=== PATIENT | male | born 1950 | race Caucasian/White ===

== ENCOUNTER 2018-04-21 13:47 | Inpatient (IN) ==
[2018-04-21] MEDS ORDERED: Ipratropium/Albuterol Neb 3 ML IH ONE (13:54)
[2018-04-21] MEDS ORDERED: methylPREDNISolone 125 MG/2 ML VIAL IVP ONE (14:02)
[2018-04-21] MEDS ORDERED: 0.9 % Sodium Chloride 500 ML IVC ONE ×3 (14:02→16:05)
[2018-04-21] MEDS ORDERED: 0.9 % Sodium Chloride 500 ML ONE (14:04)
--- NOTE | 2018-04-21 14:06 | Emergency Department Note ---
Disposition Clinical Impression: Acute exacerbation of chronic obstructive airways disease, Metastasis to brain Pneumonia Qualifiers: Pneumonia type: due to unspecified organism Laterality: right Lung location: unspecified part of lung Qualified Code(s): J18.9 - Pneumonia, unspecified organism Lung cancer Qualifiers: Laterality: right Lung location: unspecified part of lung Qualified Code(s): C34.91 - Malignant neoplasm of unspecified part of right bronchus or lung Disposition: Admitted As Inpatient Condition: Fair Referrals: NONE,PCP [Primary Care Provider] - Forms: ED Satisfaction Letter Time of Disposition: 15:57 General Adult HPI - General Chief complaint: ED Shortness of Breath/Dyspnea Stated complaint: SOB Time Seen by Provider: 04/21/18 13:53 Source: EMS Limitations: no limitations Nursing Notes Reviewed: Yes Vital Signs Reviewed: Yes - History of Present Illness HPI Narrative: Presents with shortness of breath which is, but worse the last several days and worse with exertion and he does not use home oxygen. Does not have any inhalers at home to use was not tried medication for this. Denies any associated chest pain. Does have a associated dry cough but no hemoptysis. Does have rhinorrhea. No sneezing. His said he felt warm but they did not check his temperature. No blurred vision. No blood in the urine or stool. Does have bruising of the skin but no rash. No numbness but does feel like both of his legs are weak. Social history: Smoker, no alcohol or drugs. He does have a history of lung cancer with metastases to the brain Pain Scale: 0 - Related Data Home Medications Medication Instructions Recorded Confirmed Albuterol Sulfate [Proair Hfa] 1 puff IH Q4H PRN 07/01/17 04/21/18 Levothyroxine [Synthroid] 75 mcg PO DAILY 07/01/17 04/21/18 Dexamethasone [Decadron] 4 mg PO TIDAC 03/11/18 03/26/18 Previous Rx's Medication Instructions Recorded Magic Mouthwash [Magic Mouthwash 5 - 10 ml PO QID PRN #500 ml 07/15/17 BLM] Polyethylene Glycol 3350 [MiraLAX] 17 gm PO BID PRN #240 powd.pack 08/06/17 Sennosides [Senokot] 2 tab PO BID #120 tablet 08/06/17 Lidocaine/Prilocaine [Emla] 1 appl TP DAILY #30 gm 12/03/17 FentaNYL PATCH [Duragesic] 50 mcg TD Q72H 30 Days #10 03/26/18 patch.td72 Oxycodone HCl 5 - 10 mg PO Q6H PRN 15 Days #90 03/26/18 tablet Promethazine [Phenergan] 25 mg PO Q6HR PRN #60 tablet 03/26/18 Allergies Allergy/AdvReac Type Severity Reaction Status Date / Time ibuprofen Allergy Hives Verified 03/11/18 10:51 naproxen [From Aleve] Allergy Hives Verified 03/11/18 10:51 All systems ED: reviewed and negative except as stated. Review of Systems: As Per HPI Past Medical History - Past Medical History Medical history: Reports: cancer, COPD Surgical history: Reports: non-contributory Psychiatric history: Reports: no psych history - Social History Smoking Status: Current every day smoker Smokeless Tobacco Status: No Alcohol use: Reports: none Drug use: Reports: none Physical Exam CONSTITUTIONAL: Alert and oriented X3, thin , moderate respiratory distress, he does know the name of the hospital and the year and said the month is "" HEAD: Normocephalic; atraumatic. EYES: PERRL, no scleral icterus. NOSE: The nose is normal in appearance without rhinorrhea RESP: Normal chest excursion with respiration; breath sounds with bilateral wheezing and rhonchi which is symmetric CARD: Regular rhythm, without murmurs, rub or gallop ABD: Non-distended; non-tender, soft,without rigidity, rebound or guarding SKIN: Normal for age and race; warm and dry; no apparent lesions EXTREMITIES: Pulses are 2 plus and equal times 4 extremities, no peripheral edema or calf muscle pain. - General Limitations: no limitations Course Vital Signs Temperature 98.1 F 04/21/18 13:50 Pulse Rate 120 04/21/18 13:50 Respiratory Rate 25 04/21/18 13:50 Blood Pressure 78/44 04/21/18 13:50 O2 Sat by Pulse Oximetry 91 04/21/18 13:50 Temperature 98.1 F 04/21/18 13:50 Pulse Rate 114 04/21/18 14:43 Respiratory Rate 27 04/21/18 14:43 Blood Pressure 97/62 04/21/18 14:43 O2 Sat by Pulse Oximetry 93 12/24/18 14:43 Oxygen Delivery Oxygen Delivery Nasal Cannula Medical Decision Making - MDM Narrative Medical decision making narrative: Patient does have moderate respiratory distress, hypoxemia with an oxygen saturation in the 80s at home, I did speak with the paramedics and I did see the patient immediately upon arrival. DuoNeb, IV steroid medication, patient will be admitted. I was just informed by the nurse that the current systolic blood pressure 78 and I did write for blood cultures, lactate level, IV fluid bolus and the patient will be reassessed and is sometimes difficult to understand but is able to give a good history 1407 I did review the CBC with minimal elevation in the white blood cell count. I did perform bedside ultrasound and I did visualize the aorta from the subxiphoid area down to the bifurcation in 2 different planes with maximum diameter 2.06 cm as well as did perform a cardiac ultrasound with only very minimal pericardial effusion but no evidence of tamponade not and the patient's blood pressure has improved with 500 mL of normal saline and he will be given another 500 mL and his pressure has increased from 78 systolic to 97 systolic. The patient will be admitted to the hospital. Lactate, blood cultures, IV Zosyn and vancomycin. I did speak with the patient's son who is now in the room and the patient was hospitalized in [place] in January 1507 The most recent blood pressure was checked 60 seconds ago and it is 93 systolic. I did write for a third 500 mL bolus and the patient is currently on the second 500 mL bolus. I did speak with the hospitalist who accepts the patient for admission. He is bright and alert and breathing comfortably. Sitting up on plan the cart. 1607 - Medical Records Medical records reviewed: Yes I reviewed the patient's medical records. - Lab Data Lab results reviewed: Yes I reviewed the patient's lab results. Result diagrams: 04/21/18 14:15 04/21/18 14:15 Lab Results 04/21/18 04/21/18 04/21/18 Range/Units 14:15 14:15 14:15 WBC 11.2 H (4.3-11.1) K/mcL RBC 4.38 (4.19-5.50) M/mcL Hgb 13.0 (12.9-16.9) g/dL Hct 39.3 (37.5-50.1) % MCV 89.7 (83.0-100.0) fL MCH 29.7 (28.0-33.3) pg MCHC 33.1 (31.6-35.5) g/dL RDW 14.3 (11.5-14.5) % Plt Count 181 (140-400) K/mcL MPV 9.4 (9.4-12.4) fL Seg Neutrophils % 46.0 % Band Neutrophils % 38.0 H (0-4) % Lymphocytes % 8.0 % Monocytes % 6.0 % Eosinophils % 2.0 % Neutrophils # 9.4 H (1.6-8.9) K/mcL Lymphocytes # 0.9 (0.6-4.6) K/mcL Monocytes # 0.7 (0.0-1.3) K/mcL Eosinophils # 0.2 (0.0-0.6) K/mcL Platelet Estimate Normal (Normal) Polychromasia 1+ A (Not Present) Anisocytosis 1+ A (Not Present) Sodium 134 L (136-145) mEq/L Potassium 4.5 (3.5-5.1) mEq/L Chloride 97 L (98-107) mEq/L Carbon Dioxide 25 (23-29) mEq/L BUN 31 H (8-23) mg/dL Creatinine 1.04 (0.70-1.30) mg/dL Est GFR ( Amer) > 60 (> 60) Est GFR (Non-Af Amer) > 60 (> 60) BUN/Creatinine Ratio 30 H (6-26) Glucose 110 H (70-105) mg/dL Calculated Osmolality 285 (280-300) Lactic Acid 2.2 (0.5-2.2) mmol/L Calcium 9.2 (8.6-10.3) mg/dL - Radiology Data Radiology results reviewed: Yes I reviewed the patient's radiology results. Critical Care Time Critical Care Time: Yes Total Critical Care Time: 30 Attestation: critical care time were spent with the patient with hypotension, hypoxemia, respiratory distress and history of diagnosis lung cancer with metastases to the brain and coordination of care with discussion with the hospitalist and IV antibiotics 2, DuoNeb and IV steroids.
[2018-04-21 14:43] LABS: Hematocrit 39.3 % (37.5-50.1); Mean Corpuscular HGB Conc 33.1 g/dL (31.6-35.5); Mean Corpuscular Hemoglobin 29.7 pg (28.0-33.3); Mean Corpuscular Volume 89.7 fL (83.0-100.0); Mean Platelet Volume 9.4 fL (9.4-12.4); Platelet Count 181 K/mcL (140-400); Red Blood Count 4.38 M/mcL (4.19-5.50); Red Cell Distribution Width 14.3 % (11.5-14.5)
[2018-04-21] MEDS ORDERED: Piperacillin/Tazobactam 3.375 GM in 0.9 % Sodium Chloride Mini Bag 100 ML IVPB ONE (15:05)
[2018-04-21 15:06] LABS: BUN/Creatinine Ratio 30 (6-26); Blood Urea Nitrogen 31 mg/dL (8-23); Calcium 9.2 mg/dL (8.6-10.3); Carbon Dioxide 25 mEq/L (23-29); Chloride 97 mEq/L (98-107); Glucose 110 mg/dL (70-105); Osmolality,Calculated 285 (280-300); Potassium 4.5 mEq/L (3.5-5.1); Sodium 134 mEq/L (136-145); eGFR For Non-African Americans > 60 (> 60)
[2018-04-21 15:33] LABS: Eosinophils # 0.2 K/mcL (0.0-0.6); Lymphocytes # 0.9 K/mcL (0.6-4.6); Monocytes # 0.7 K/mcL (0.0-1.3); Neutrophils # 9.4 K/mcL (1.6-8.9); Platelet Estimate Normal (Normal)
[2018-04-21 15:34] LABS: Anisocytosis 1+ (Not Present); Polychromasia 1+ (Not Present)
[2018-04-21] MEDS ORDERED: traMADol 50 MG TABLET PO PRN (16:35)
[2018-04-21] MEDS ORDERED: Naloxone 0.4 MG/ML INJ IVP PRN (16:35)
[2018-04-21] MEDS ORDERED: Isovue-370 500 ML INFUS..BTL IV ONE (17:14)
--- NOTE | 2018-04-21 17:19 | Internal Med History&Physical ---
Date of Encounter: 04/21/18 Time of Encounter: 17:15 Internal Medicine - H&P: HPI Chief complaint: shortness of breath History of present illness: Mr. Kumar is a 67 year old male past medical history significant for tobacco abuse, lung CA with mets to the brain s/p surgery plus brain radiation (last radiation therapy about 2 week ago). patient reports that he received 6 sessions of chemotherapy for the lung CA, last one about 2 months ago. Patient presented to the hospital due to a week long history of worsening respiratory distress which he describes as feeling short of breath with minimal exertion and even at rest now. Patient reports that he has used his inhaler without relief of his symptoms. Denies chest pain, or productive cough, but reports subjective fever and chills of one day duration. Past Med Surg Social Fam HX - Past Medical History Medical history: cancer, COPD Psychiatric history: no psych history - Past Surgical History Surgical History: non-contributory - Social History Smoking Status: Current every day smoker Smokeless Tobacco Status: No Alcohol use: none Drug use: none Internal Medicine - H&P: Meds Albuterol Sulfate [Proair Hfa] 1 puff IH Q4H PRN 07/01/17 [History] Levothyroxine [Synthroid] 75 mcg PO DAILY 07/01/17 [History] Magic Mouthwash [Magic Mouthwash BLM] 5 - 10 ml PO QID PRN #500 ml 07/15/17 [Rx] Polyethylene Glycol 3350 [MiraLAX] 17 gm PO BID PRN #240 powd.pack 08/06/17 [Rx] Sennosides [Senokot] 2 tab PO BID #120 tablet 08/06/17 [Rx] Lidocaine/Prilocaine [Emla] 1 appl TP DAILY #30 gm 12/03/17 [Rx] Dexamethasone [Decadron] 4 mg PO TIDAC 03/11/18 [History] FentaNYL PATCH [Duragesic] 50 mcg TD Q72H 30 Days #10 patch.td72 03/26/18 [Rx] Oxycodone HCl 5 - 10 mg PO Q6H PRN 15 Days #90 tablet 03/26/18 [Rx] Promethazine [Phenergan] 25 mg PO Q6HR PRN #60 tablet 03/26/18 [Rx] Allergy/AdvReac Type Severity Reaction Status Date / Time ibuprofen Allergy Hives Verified 03/11/18 10:51 naproxen [From Aleve] Allergy Hives Verified 03/11/18 10:51 All Systems PM: A 10-system review of systems was performed and is negative for pertinent findings except as documented above in the HPI. - Constitutional Constitutional: chills, fever(s) (subjective.), weakness - EENT Eyes: no change in vision, no pain Nose, mouth and throat: no dysphagia - Cardiovascular Cardiovascular ROS IM: dyspnea, dyspnea on exertion, no chest pain, no edema, no irregular heart rhythm, no lightheadedness, no orthopnea, no palpitations - Respiratory Respiratory: cough (non-productive.), wheezing, chest congestion, no dyspnea, no snoring, no pain on inspiration, no excessive phlegm production - Gastrointestinal Gastrointestinal: no abdominal pain, no dysphagia, no melena, no nausea, no tenesmus, no vomiting - Genitourinary Genitourinary ROS male: urinary hesitancy, no dysuria, no urinary incontinence, no urinary urgency - Musculoskeletal Musculoskeletal ROS IM: no atrophy, no limited range of motion - Integumentary Integumentary IM: no erythema, no rash - Neurological Neurological ROS: no lack of coordination, no vertigo, no weakness - Psychiatric Psychiatric: no anxiety, no difficulty concentrating - Endocrine Endocrine IM: no flushing - Allergic/Immunologic Allergic/Immunologic: wheezing, no uticaria Additional comments: Rest of the review of system negative. - Constitutional Vitals: Temp Pulse Resp BP Pulse Ox 98.1 F 114 27 97/62 93 04/21/18 13:50 04/21/18 14:43 04/21/18 14:43 04/21/18 14:43 04/21/18 14:43 Exam: Vitals: Reviewed General: Cachectic appearing, teary-eyed, in acute distress due to shortness of breath.. Skin: Warm and supple. HEENT: Moist mucous membranes. No conjunctivae pallor. Neck: No lymphadenopathy. No JVD. No carotid bruits. No palpable thyroid. Chest: Diminished thoracic expansion. Diffuse is scattered bilateral wheezes, no rales or rhonchi. Heart: Tachycardic, Normal S1 & S2; rhythmic. No rubs or murmurs. Abdomen: Non-distended, soft and non-tender to palpation. Extremities: (+) clubbing, no cyanosis or edema. No calf tenderness. Normal distal pulses. Neurological: Awake, alert and oriented to person, place and time. No focal deficits. Psych: Affect appropriate. Internal Med - H&P Results - Labs CBC & Chem 7: 04/21/18 14:15 04/21/18 14:15 Labs: Short CBC 04/21/18 Range/Units 14:15 WBC 11.2 H (4.3-11.1) K/mcL Hgb 13.0 (12.9-16.9) g/dL Hct 39.3 (37.5-50.1) % Plt Count 181 (140-400) K/mcL Neutrophils # 9.4 H (1.6-8.9) K/mcL BMP 04/21/18 14:15 Sodium 134 L Potassium 4.5 Chloride 97 L Carbon Dioxide 25 BUN 31 H Creatinine 1.04 Glucose 110 H Calcium 9.2 - Impressions ITS Impressions Chest X-Ray 04/21/18 13:54 IMPRESSION: Airspace opacification seen in the right lung similar to the chest CT 04/18/2018. Findings could be related to the patient's known malignancy but a superimposed pneumonia could give this appearance D/ / Gabe Coy MD / Gabe Coy MD Interpreting Provider: Gabe Coy MD - Assessment and plan (1) Acute exacerbation of chronic obstructive airways disease Current Visit: Yes Status: Acute Assessment and plan: possible due to pneumonia Patient is started on bronchodilator. And methylprednisolone 60 mg IV every 8 hours. Incentive spirometry as tolerated. Continue oxygen by nasal cannula, titrate for O2 sat duration more than 92%. ABG (2) Hypotension Current Visit: Yes Status: Acute Assessment and plan: possible secondary to sepsis, possible pneumonia on chest x-ray r/o PE as patient is high risk due to hx of lung CA patient started on broad spectrum IV antibiotics Blood culture started on IV hydration with NS@125mls/hr, close monitoring for signs of volume overload. CTA of the chest D-dimers Limited TTE, to eval EF as patient might need aggressive IV fluid resuscitation Qualifiers: Hypotension type: unspecified hypotension type Qualified Code(s): I95.9 - Hypotension, unspecified (3) Lung cancer Current Visit: Yes Status: Chronic Assessment and plan: with brain metastasis. s/p to chemotherapy plus brain radiation. will consult He&Onc, recommendations appreciated. Palliative care consult for goal of care. Qualifiers: Laterality: right Lung location: unspecified part of lung Qualified Code(s): C34.91 - Malignant neoplasm of unspecified part of right bronchus or lung (4) Metastasis to brain Current Visit: Yes Status: Chronic Assessment and plan: plan of care as above (5) Pneumonia Current Visit: Yes Status: Acute Assessment and plan: patient started on broad spectrum IV antibiotics. Qualifiers: Pneumonia type: due to unspecified organism Laterality: right Lung location: unspecified part of lung Qualified Code(s): J18.9 - Pneumonia, unspecified organism (6) Hypothyroidism Current Visit: Yes Status: Chronic Assessment and plan: will resume levothyroxine 75mcg/PO daily. Qualifiers: Hypothyroidism type: unspecified Qualified Code(s): E03.9 - Hypothyroidism, unspecified (7) DVT prophylaxis Current Visit: Yes Status: Acute Assessment and plan: started on Heparin SuBQ - Time Spent With Patient Total time spent is greater than 50% in coordination of care (as documented) at patient's floor/unit and/or counseling patient: Greater than 35 minutes (45)
[2018-04-21] MEDS: 0.9 % Sodium Chloride 1,000 ML IVC SCH (17:30)
[2018-04-21 18:28] LABS: ABG Base Excess -2 mEq/L (-2 to 3); ABG HCO3 23 mEq/L (21-27); ABG Oxygen Saturation 93 % (95-98); ABG PCO2 41 mmHg (35-45); ABG PH 7.36 pH Units (7.32-7.45); ABG PO2 71 mmHg (85-104); ABG TCO2 24 mEq/L (20-26)
[2018-04-21] MEDS: Ipratropium/Albuterol Neb 3 ML IH SCH ×3 (18:32→23:35)
[2018-04-21] MEDS: *HR* Heparin 5,000 UNIT/ML VIAL SQ SCH ×2 (20:23)
[2018-04-21] MEDS: Sennosides/Docusate Sodium TABLET PO SCH (20:23)
[2018-04-21 20:25] LABS: INR 1.5; Prothrombin Time 16.6 Seconds (9.4-12.1)
[2018-04-21 20:27] LABS: Activated Partial Thrombo Time 29.4 Seconds (26.0-36.0)
[2018-04-21] MEDS: Piperacillin/Tazobactam 3.375 GM in 0.9 % Sodium Chloride Mini Bag 100 ML IVPB SCH (23:53)
[2018-04-21] MEDS: MethylPREDNISolone 40 MG/ML VIAL IVP SCH (23:53)
[2018-04-22] MEDS ORDERED: MethylPREDNISolone 40 MG/ML VIAL IVP SCH
[2018-04-22] MEDS: 0.9 % Sodium Chloride 1,000 ML IVC SCH (02:06)
[2018-04-22 02:23] LABS: Bilirubin,Urine Negative (Negative); Blood,Urine Negative (Negative); Clarity,Urine Clear (Clear); Color,Urine Yellow (Yellow); Glucose,Urine (UA) Normal (Normal); Ketones,Urine Negative (Negative); Leukocyte Esterase,Urine Negative (Negative); Nitrite,Urine Negative (Negative); Protein,Urine 30 mg/dL (Neg-Trace); Specific Gravity,Urine > 1.030 (1.010-1.025); Urobilinogen,Urine Normal (Normal)
[2018-04-22 02:26] LABS: Bacteria,Urine None Seen per hpf (None-Few); Hyaline Casts,Urine None Seen per lpf (None-Few); RBC,Urine 0-3 per hpf (0-3); Squamous Epithelial Cell,Urine Few per lpf (None-Few); WBC,Urine 0-3 per hpf (0-3)
[2018-04-22] MEDS ORDERED: 0.9 % Sodium Chloride 500 ML IVC ONE (03:40)
[2018-04-22] MEDS: Ipratropium/Albuterol Neb 3 ML IH SCH ×6 (03:59→23:17)
[2018-04-22 04:12] LABS: Hematocrit 32.4 % (37.5-50.1); Mean Corpuscular HGB Conc 32.4 g/dL (31.6-35.5); Mean Corpuscular Hemoglobin 29.7 pg (28.0-33.3); Mean Corpuscular Volume 91.8 fL (83.0-100.0); Mean Platelet Volume 9.4 fL (9.4-12.4); Platelet Count 143 K/mcL (140-400); Red Blood Count 3.53 M/mcL (4.19-5.50); Red Cell Distribution Width 14.5 % (11.5-14.5)
[2018-04-22 04:13] LABS: Hemoglobin 10.5 g/dL (12.9-16.9)
[2018-04-22 04:31] LABS: Alanine Aminotransferase 15 Units/L (7-52); Albumin 2.3 g/dL (3.5-5.7); Alkaline Phosphatase 53 Units/L (34-104); Aspartate Amino Transferase 12 Units/L (13-39); BUN/Creatinine Ratio 31 (6-26); Bilirubin,Total 0.5 mg/dL (0.3-1.0); Blood Urea Nitrogen 22 mg/dL (8-23); Carbon Dioxide 26 mEq/L (23-29); Chloride 105 mEq/L (98-107); Globulin 2.4 g/dL (2.4-3.5); Glucose 141 mg/dL (70-105); Magnesium 1.7 mg/dL (1.6-2.6); Osmolality,Calculated 290 (280-300); Phosphorous 2.8 mg/dL (2.7-4.5); Potassium 3.9 mEq/L (3.5-5.1); Sodium 137 mEq/L (136-145); Total Protein 4.7 g/dL (6.4-8.9); eGFR For Non-African Americans > 60 (> 60)
[2018-04-22] MEDS: *HR* Heparin 5,000 UNIT/ML VIAL SQ SCH (05:06)
[2018-04-22] MEDS ORDERED: 0.9 % Sodium Chloride 1,000 ML IVC SCH (09:11)
[2018-04-22] MEDS: Sennosides/Docusate Sodium TABLET PO SCH ×2 (09:16→20:34)
[2018-04-22] MEDS ORDERED: *HR* Heparin 5,000 UNIT/ML VIAL IVP ONE (09:16)
[2018-04-22] MEDS ORDERED: *HR* Heparin 5,000 UNIT/ML VIAL IVP PRN ×2 (09:16)
[2018-04-22] MEDS: MethylPREDNISolone 40 MG/ML VIAL IVP SCH ×2 (09:17→17:13)
[2018-04-22] MEDS: Piperacillin/Tazobactam 3.375 GM in 0.9 % Sodium Chloride Mini Bag 100 ML IVPB SCH ×2 (09:20→17:16)
[2018-04-22 09:52] LABS: Hematocrit 34.3 % (37.5-50.1); Hemoglobin 11.1 g/dL (12.9-16.9); Mean Corpuscular HGB Conc 32.4 g/dL (31.6-35.5); Mean Corpuscular Hemoglobin 29.9 pg (28.0-33.3); Mean Corpuscular Volume 92.5 fL (83.0-100.0); Mean Platelet Volume 9.3 fL (9.4-12.4); Platelet Count 159 K/mcL (140-400); Red Blood Count 3.71 M/mcL (4.19-5.50); Red Cell Distribution Width 14.5 % (11.5-14.5)
[2018-04-22 10:00] LABS: INR 1.3; Prothrombin Time 14.5 Seconds (9.4-12.1)
[2018-04-22] MEDS: Heparin 25,000 UNIT/500 ML D5W 25,000 UNIT/500 ML BAG IVC SCH (11:01)
--- NOTE | 2018-04-22 11:42 | Internal Med Progress Note ---
Hospitalist Progress Note - Encounter Date of Encounter: 04/22/18 Time of Encounter: 11:39 - Subjective Interval History: I have seen and evaluated the patient at bedside. Patient reports that her shortness of breath continues to improve, denies chest pain, nausea or vomiting. - Exam Vitals: Temp Pulse Resp BP Pulse Ox 98.0 F 103 24 90/59 95 04/22/18 11:14 04/22/18 11:14 04/22/18 11:14 04/22/18 11:14 04/22/18 11:14 Exam: Vitals: Reviewed. General: Alert and oriented x4. In mild distress due to shortness of breath. Skin: Normal color, no rash, no lesions. Cardiovascular: tachycardic, Normal S1 & S2, no rubs, murmurs or gallops. Lungs: b/l scattered expiratory wheezing and rales, no crackles. Abdomen: Soft, non-tender, no rigidity. Extremities: No deformity, no edema or tenderness, no joint swelling or clubbing. Neurological: Normal cognition and motor skills. Rest of the physical exam is non contributory - Assessment and Plan (1) Pulmonary embolism Current Visit: Yes Status: Acute Assessment and Plan: CT/CT angio chest IMPRESSION: 1. Small bilateral lower lobe pulmonary emboli stable to mildly decreased from 04/18/2018. Plan patient started on a heparin drip Hem&Onc consulted to discuss senior living anticoagulation, recommendations appreciated venous duplex of the lower extr b/l ordered. (2) Acute exacerbation of chronic obstructive airways disease Current Visit: Yes Status: Acute Assessment and Plan: shortness of breath has been improving. continue O2 by nasal canula, titrate for O2Sat >92% on bronchodilators scheduled, decrease methyl-prednisolone to 40mg/IV Q8HRs chest PT incentive spirometry Patient on broad spectrum IV antibiotics stand by BiPap. (3) Hypotension Current Visit: Yes Status: Acute Assessment and Plan: patient reports that he has a Hx of Low BP, running in the 90s, low 100s for SBP. cannot r/o sepsis as a potential cause. patient has been resuscitated with NS, has received 3 litters of fluids, non- tachycardic, lactic acid WNL. will decrease IV fluids to 75mls/hr, will monitor for signs of volume overload. Continue broad-spectrum antibiotics Blood cultures: Ordered. (4) Lung cancer Current Visit: Yes Status: Chronic Assessment and Plan: Hem&Onc has been consulted. palliative care has been consulted. (5) Metastasis to brain Current Visit: Yes Status: Chronic Assessment and Plan: outpatient follow up. (6) Pneumonia Current Visit: Yes Status: Acute Assessment and Plan: patient on Piperacillin/tazobactam 3.375mg/IV Q8HRs, sputum culture and gram stain sent, urine strep and legionella sent. (7) Hypothyroidism Current Visit: Yes Status: Chronic Assessment and Plan: continue levothyroxine 75mcg/PO daily. DVT Prophylaxis: Patient on a heparin drip due to PE - Summary of Assessment and Plan Summary of Assessment and Plan: Patient to remain in the hospital due to COPD exacerbation, PE and pneumonia - Time Spent with Patient Total time spent is greater than 50% in coordination of care (as documented) at patient's floor/unit and/or counseling patient: Greater than 35 minutes (45) Plan of Care Discussed with: patient (and the nurse.) Internal Medicine: Result - Labs CBC & Chem 7: 04/22/18 09:30 04/22/18 03:57 Labs: Short CBC 04/21/18 04/22/18 04/22/18 Range/Units 14:15 03:57 09:30 WBC 11.2 H 7.1 7.6 (4.3-11.1) K/mcL Hgb 13.0 10.5 L D 11.1 L (12.9-16.9) g/dL Hct 39.3 32.4 L 34.3 L (37.5-50.1) % Plt Count 181 143 159 (140-400) K/mcL Neutrophils # 9.4 H (1.6-8.9) K/mcL BMP 04/21/18 04/22/18 14:15 03:57 Sodium 134 L 137 Potassium 4.5 3.9 Chloride 97 L 105 Carbon Dioxide 25 26 BUN 31 H 22 Creatinine 1.04 0.70 Glucose 110 H 141 H Calcium 9.2 8.0 L Cardiac Enzymes 04/21/18 Range/Units 19:56 Troponin I 0.08 H* (< 0.04) ng/mL Liver Function 04/22/18 Range/Units 03:57 Total Bilirubin 0.5 (0.3-1.0) mg/dL AST 12 L (13-39) Units/L ALT 15 (7-52) Units/L Alkaline Phosphatase 53 (34-104) Units/L Albumin 2.3 L (3.5-5.7) g/dL Urine 04/22/18 Range/Units 02:11 Urine Color Yellow (Yellow) Urine Clarity Clear (Clear) Urine pH 6.0 (5.0-8.0) pH Units Ur Specific [place] > 1.030 H (1.010-1.025) Urine Protein 30 H (Neg-Trace) mg/dL Urine Glucose (UA) Normal (Normal) mg/dL - ABG Interpretation ABG results: ABG ABG pH 7.36 pH Units (7.32-7.45) 04/21/18 18:23 ABG pCO2 41 mmHg (35-45) 04/21/18 18:23 ABG pO2 71 mmHg (85-104) L 04/21/18 18:23 ABG O2 Saturation 93 % (95-98) L 04/21/18 18:23 PT/INR, D-dimer PT 14.5 Seconds (9.4-12.1) H 04/22/18 09:30 D-Dimer 5719 ng/mLFEU (0-500) H 04/21/18 19:56 - Impressions Impressions Chest X-Ray 04/21/18 13:54 IMPRESSION: Airspace opacification seen in the right lung similar to the chest CT 04/18/2018. Findings could be related to the patient's known malignancy but a superimposed pneumonia could give this appearance D/ / Gabe Coy MD / Gabe Coy MD Interpreting Provider: Gabe Coy MD Chest CTA 04/21/18 17:14 IMPRESSION: 1. Small bilateral lower lobe pulmonary emboli stable to mildly decreased from 04/18/2018. 2. Extensive patchy consolidation in the right lower lobe with ground-glass opacities at the right lung base new from the previous exam likely to represent pneumonia or aspiration. 3. Grossly unchanged large right upper and middle lobe masslike consolidation abutting the mediastinum and right hilum with associated atelectasis compatible with the patient's history of known lung cancer. Stable nodules in the right middle and lower lobes as well as the lingula. D/ / Matthew Kruse MD / Matthew Kruse MD Interpreting Provider: Matthew Kruse MD Consult Discharge Plan - Plan Referrals: NONE,PCP [Primary Care Provider] - (1) Pulmonary embolism Qualifiers: Pulmonary embolism type: unspecified Chronicity: unspecified Acute cor pulmonale presence: without acute cor pulmonale Qualified Code(s): I26.99 - Other pulmonary embolism without acute cor pulmonale (3) Hypotension Qualifiers: Hypotension type: unspecified hypotension type Qualified Code(s): I95.9 - Hypotension, unspecified (4) Lung cancer Qualifiers: Laterality: right Lung location: unspecified part of lung Qualified Code(s): C34.91 - Malignant neoplasm of unspecified part of right bronchus or lung (6) Pneumonia Qualifiers: Pneumonia type: due to unspecified organism Laterality: right Lung location: unspecified part of lung Qualified Code(s): J18.9 - Pneumonia, unspecified organism (7) Hypothyroidism Qualifiers: Hypothyroidism type: unspecified Qualified Code(s): E03.9 - Hypothyroidism, unspecified
[2018-04-22] MEDS ORDERED: Albuterol 2.5 MG/3 ML NEBULIZER IH PRN (11:53)
[2018-04-23] MEDS: Piperacillin/Tazobactam 3.375 GM in 0.9 % Sodium Chloride Mini Bag 100 ML IVPB SCH ×4 (00:07→23:03)
[2018-04-23] MEDS: MethylPREDNISolone 40 MG/ML VIAL IVP SCH ×4 (00:08→23:03)
[2018-04-23] MEDS ORDERED: Ipratropium/Albuterol Neb 3 ML IH PRN (00:29)
[2018-04-23] MEDS ORDERED: *HR* LORazepam 2 MG/ML VIAL ONE (01:57)
[2018-04-23] MEDS ORDERED: *HR* LORazepam 2 MG/ML VIAL IVP ONE (02:04)
--- NOTE | 2018-04-23 02:39 | Event Note ---
Date of Encounter: 04/23/18 Time of Encounter: 01:06 Notified by nurse of patient having increased shortness of breath requiring additional oxygen and bending over to breathe. Unable to immediately come to assess patient due to being at a rapid response on 3B. Came to assess patient and he continues to refuse BIPAP and saturations in high 80's on 15lpm mask, tachycardic, with stable blood pressure. Patient remains oriented and wishes to remain full code at this time. Discussed with Dr Palma. Ordered low dose IV ativan, stat chest xray, and respiratory to reapply BIPAP. After BIPAP applied patient saturations improved to high 90's with decreased labor of breathing however patient keeps pulling at BIPAP, advised nurse bedside sitter can be ordered if needed.
[2018-04-23 04:05] LABS: Hematocrit 34.6 % (37.5-50.1); Hemoglobin 11.3 g/dL (12.9-16.9); Mean Corpuscular HGB Conc 32.7 g/dL (31.6-35.5); Mean Corpuscular Hemoglobin 30.1 pg (28.0-33.3); Mean Platelet Volume 9.7 fL (9.4-12.4); Monocytes # 0.4 K/mcL (0.0-1.3); Platelet Count 167 K/mcL (140-400); Red Blood Count 3.76 M/mcL (4.19-5.50); Red Cell Distribution Width 14.4 % (11.5-14.5)
[2018-04-23] MEDS: Ipratropium Neb 0.5 MG NEBULIZER IH SCH ×6 (04:23→23:03)
[2018-04-23 04:25] LABS: BUN/Creatinine Ratio 32 (6-26); Blood Urea Nitrogen 19 mg/dL (8-23); Calcium 8.3 mg/dL (8.6-10.3); Carbon Dioxide 26 mEq/L (23-29); Chloride 106 mEq/L (98-107); Glucose 137 mg/dL (70-105); Magnesium 1.6 mg/dL (1.6-2.6); Osmolality,Calculated 292 (280-300); Phosphorous 1.7 mg/dL (2.7-4.5); Potassium 3.6 mEq/L (3.5-5.1); Sodium 139 mEq/L (136-145); eGFR For Non-African Americans > 60 (> 60)
[2018-04-23 04:39] LABS: Lymphocytes # 0.4 K/mcL (0.6-4.6); Neutrophils # 7.5 K/mcL (1.6-8.9)
[2018-04-23 04:40] LABS: Platelet Estimate Normal (Normal); Smudge Cells Present (Not Present)
[2018-04-23 04:41] LABS: Basophilic Stippling 1+ (Not Present); Polychromasia 1+ (Not Present)
[2018-04-23] MEDS: Sennosides/Docusate Sodium TABLET PO SCH ×2 (08:49→19:26)
--- NOTE | 2018-04-23 09:05 | Infectious Disease Consult ---
Date of Encounter: 04/23/18 Time of Encounter: 08:55 Assessment and Plan (1) Severe sepsis Status: Acute Assessment and plan: The patient had 3 sepsis criteria plus hypotension responsive to IV fluids and lactic acidosis. Likely secondary to pneumonia. White blood cell count has normalized, but he continues to have bandemia. His low-grade fever with a MAXIMUM TEMPERATURE of 100 overnight. He continues to have tachycardia and tachypnea with obvious respiratory distress. Cultures drawn 04/21/18 are pending 2 sets. Additional blood cultures from 04/22/18 are pending 2 sets. Recommendations: Await blood cultures. Obtain sputum culture if the patient is able to provide an adequate specimen. Continue to trend WBC with differential daily. Check respiratory infectious panel. Check MRSA screen. Check Legionella UAT. Recommend pulmonary to evaluate. Start Vancomycin IV. Pharmacy to dose. Goal trough ~15. Start Levaquin 750mg IV daily. Continue Zosyn 3.375 grams IV Q8H. Duration of treatment depends on the clinical picture. Monitor renal function and for drug toxicity and dose-adjust antibiotics. (2) Pneumonia Status: Acute Assessment and plan: Location: Multifocal. Causative organism: Unclear. Chest x-ray 04/21/18 showed air space opacification in the right lung similar to the chest CT 04/18/18. Findings could be related to patient's known malignancy but superimposed pneumonia could not give this appearance. CTA of the chest completed 04/21/18 showed small bilateral lower lobe pulmonary emboli stable to mildly decreased from 04/18/18. There was extensive patchy consolidation in the right lower lobe groundglass opacities in the right lung base new from previous exam likely representing pneumonia or aspiration. There is also grossly unchanged large right upper and middle lobe masslike consolidation abutting the mediastinum and right hilum with associated atelectasis compatible with the patient's history of known lung cancer. Stable nodules in the right middle and lower lobes as well as the lingula were noted as well. Repeat chest x-ray 04/22 showed multifocal airspace disease on the right had progressed from prior exam and findings are concerning for multilobar pneumonia as well as persistent collapse of the right upper lobe and severe background emphysema. Repeat chest x-ray 04/23 showed mildly worsening right airspace disease. The patient has had progressively worsening respiratory symptoms overnight. Strep pneumococcal antigen was negative. Currently on IV Zosyn. Qualifiers: Pneumonia type: due to unspecified organism Laterality: right Lung location: unspecified part of lung Qualified Code(s): J18.9 - Pneumonia, unspecified organism (3) Acute exacerbation of chronic obstructive airways disease Status: Acute Assessment and plan: Duo nebs, steroids, and O2 support per the primary team. (4) Acute respiratory failure with hypoxia Status: Acute Assessment and plan: Likely secondary to pneumonia, COPD, and lung cancer. (5) Pulmonary embolism Status: Acute Assessment and plan: CT of the chest noted bilateral lower lobe pulmonary emboli that had decreased since previous imaging on 04/18/18. Anticoagulation per the primary team. Qualifiers: Pulmonary embolism type: unspecified Chronicity: unspecified Acute cor pulmonale presence: without acute cor pulmonale Qualified Code(s): I26.99 - Other pulmonary embolism without acute cor pulmonale (6) Lactic acidosis Status: Acute Assessment and plan: Likely secondary to sepsis. Resolved. (7) Lung cancer Status: Chronic Assessment and plan: Diagnosed in June 2017 Metastatic squamous cell carcinoma of the lung with 2 dominant masses, one involving his right upper lobe and the other involving the left upper lobe with mediastinal invasion. PET/CT 07/03/17 was without visceral metastasis. Status post palliative XRT to the left chest wall completed 07/31/17. Carboplatin with the Abraxane 08/14 through 12/14 discontinued secondary to cytopenias 11/12/17. Right suboccipital craniectomy with cerebellar mastoidectomy 02/26/18. Stereotactic radiotherapy April 04, , and at [facility] completed. Her oncology recommendations, the patient was scheduled to start Nivolumab 04/24/18. 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 Anticoagulation per the primary team. Qualifiers: DVT location: lower extremity Affected thrombotic vein of extremity: femoral Laterality: left Qualified Code(s): I82.512 - Chronic embolism and thrombosis of left femoral vein Infectious Disease HPI - Data of Consult Patient: new to practice Consult date: 04/23/18 Requesting Physician: Aubrey Gabriel MD Primary Care Provider: PCP NONE - Consult Narrative Reason for consult: PNA History of present illness: Mr. Kumar is a 67 year old male with a past medical history of metastatic squamous cell carcinoma of the lung with brain mets status post palliative XRT to the left chest wall 07/2017, status post craniectomy with metastatectomy 01/2018, status post palliative carboplatin with abraxane 08/06/17-11/12/17, status post stereotactic radiosurgery 04/04, 04/06, and 04/07 with plans to re- start chemo this month. He was admitted to the hospital 04/21/18 with PNA. We are consulted 04/23/18 for PNA. Briefly, the patient is a 67-year-old male with past medical history as stated above. The patient presented to the emergency department on the day of admission with a one-week history of worsening shortness of breath. Upon arrival, he was tachycardic, tachypneic, hypotensive, and hypoxic. He was noted to have leukocytosis with bandemia. Lactic acid was initially normal, but repeat was elevated at 3.4. Troponin was mildly elevated at 0.08. He had a chest x-ray showed air space opacification of the right lung similar to a CT of the chest 04/18 which likely represents his known malignancy, but superimposed pneumonia cannot be excluded. He had a CTA of the chest that showed a small bilateral pulmonary emboli that had mildly decreased since previous imaging on 04/18 as well as findings concerning for pneumonia or aspiration of the right lung base and unchanged lung mass. Cultures were obtained 2 sets. He was started empirically on IV Vanco and Zosyn and admitted to the hospital for further evaluation. Since admission, the patient's white blood cell count has normalized, but he has continued to have bandemia. He had a lower extremity venous Doppler study that showed chronic DVT in the left common femoral, left superficial femoral, and left popliteal veins. His lactic acid is normalized. Repeat chest x-ray showed increased multifocal airspace disease and persistent collapse of the right upper lobe as well as severe background emphysema. He had a transthoracic echocardiogram that showed an EF of 60-65%. He did have a low- grade temp last night of 100. Blood cultures were repeated 2 sets are pending. Strep pneumo urinary antigen was negative. This morning, he had worsening shortness of breath and was refusing to wear his And he became hypoxic and tachycardic and tachypneic. Repeat chest x-ray showed mildly worsening right airspace disease. Currently, he is on IV Zosyn. We have been asked to evaluate and make further recommendations. During my exam today, the patient's dyspnea limits his ability to provide me with much information, but he is able to tell me that he has felt more short of breath for the last 4 or 5 days prior to admission. He endorses a non-productive cough. Denies fevers, chills, or rigors. Denies chest pain. Denies nausea, vomiting, or diarrhea. States his last BM was two days ago which is not normal for him. He reports some trouble starting his urine stream and per nursing he has voided twice this morning, both small amounts. He denies abdominal, back, head, or neck pain. The patient lives at home with his . He smokes about a pack of cigarettes per day. Denies alcohol or illicit drug use. Denies known chronic infectious diseases. CC: Aubrey Gabriel MD Past Med Surg Social Fam HX - Past Medical History Attestation: Yes The following information was validated with the patient. Source: patient, old records reviewed, nursing notes reviewed Medical history: cancer, COPD Additional medical history: Hypothyroidism Psychiatric history: no psych history - Past Surgical History Surgical History: other (Craniectomy with metastatectomy 01/2018) - Social History Smoking Status: Current every day smoker Smokeless Tobacco Status: No Alcohol use: none Drug use: none Infectious Disease-CN:Meds Albuterol Sulfate [Proair Hfa] 1 puff IH Q4H PRN 07/01/17 [History] Levothyroxine [Synthroid] 75 mcg PO DAILY 07/01/17 [History] Magic Mouthwash [Magic Mouthwash BLM] 5 - 10 ml PO QID PRN #500 ml 07/15/17 [Rx] Polyethylene Glycol 3350 [MiraLAX] 17 gm PO BID PRN #240 powd.pack 08/06/17 [Rx] Sennosides [Senokot] 2 tab PO BID #120 tablet 08/06/17 [Rx] Lidocaine/Prilocaine [Emla] 1 appl TP DAILY #30 gm 12/03/17 [Rx] Dexamethasone [Decadron] 4 mg PO TIDAC 03/11/18 [History] FentaNYL PATCH [Duragesic] 50 mcg TD Q72H 30 Days #10 patch.td72 03/26/18 [Rx] Oxycodone HCl 5 - 10 mg PO Q6H PRN 15 Days #90 tablet 03/26/18 [Rx] Promethazine [Phenergan] 25 mg PO Q6HR PRN #60 tablet 03/26/18 [Rx] Allergy/AdvReac Type Severity Reaction Status Date / Time ibuprofen Allergy Hives Verified 03/11/18 10:51 naproxen [From Aleve] Allergy Hives Verified 03/11/18 10:51 acetaminophen AdvReac Hives Verified 04/23/18 01:20 [From Tylenol Severe Allergy] diphenhydramine AdvReac Hives Verified 04/23/18 01:20 [From Tylenol Severe Allergy] All systems: reviewed and no additional remarkable complaints except as stated Exam - Constitutional Vitals: Temp Pulse Resp BP Pulse Ox 100 F H 119 27 91/64 96 04/23/18 01:00 04/23/18 06:12 04/23/18 04:25 04/23/18 06:12 04/23/18 04:25 General appearance: cooperative, mild distress, thin - Head Head exam: Present: atraumatic, normal inspection, normocephalic - Eye Eye exam: Present: EOMI, normal appearance, PERRL Pupils: Present: normal accommodation - ENT ENT exam: Present: mucous membranes dry - Neck Neck exam: Present: normal inspection. Absent: meningismus - Respiratory Respiratory exam: Present: rales, respiratory distress, rhonchi, wheezes, tachypnea - Cardiovascular Cardiovascular exam: Present: tachycardia. Absent: irregular rhythm - GI/Abdominal GI/Abdominal exam: Present: normal bowel sounds, soft. Absent: distended, tenderness - Extremities Exam Extremities exam: Present: normal inspection, pedal edema (1+ BLE). Absent: joint swelling, tenderness - Neurological Exam Neurological exam: Present: alert, oriented X3, no focal deficits - Psychiatric Psychiatric exam: Present: normal affect, normal mood - Skin Skin exam: Present: dry, intact, normal color, warm Infectious Disease CN: Results - Labs CBC & Chem 7: 04/23/18 03:49 04/23/18 03:49 Cultures: Cultures 04/22/18 02:11 Streptococcus pneumoniae Antigen (M - Final Urine,Random-Not Preferred Serology: Serology 04/22/18 Range/Units 02:11 Urine Color Yellow (Yellow) Urine Clarity Clear (Clear) Urine pH 6.0 (5.0-8.0) pH Units Ur Specific [place] > 1.030 H (1.010-1.025) Urine Protein 30 H (Neg-Trace) mg/dL Urine Glucose (UA) Normal (Normal) mg/dL Urine Ketones Negative (Negative) mg/dL Urine Blood Negative (Negative) Urine Nitrite Negative (Negative) Urine Bilirubin Negative (Negative) Urine Urobilinogen Normal (Normal) mg/dL Ur Leukocyte Esterase Negative (Negative) Urine Microscopic RBC 0-3 (0-3) per hpf Urine Microscopic WBC 0-3 (0-3) per hpf Ur Squamous Epith Cells Few (None-Few) per lpf Urine Bacteria None Seen (None-Few) per hpf Hyaline Casts None Seen (None-Few) per lpf Consult Discharge Plan - Plan Referrals: NONE,PCP [Non-Partnered Physician] - - Attending Attestation I examined this patient and my medical decision-making was reviewed with the Resident Physician. I agree with the documented findings, disposition and treatment plan as described except to the extent set forth below. patient is a 67 year old gentleman with past medical history mentioned below including metastatic squamous cell carcinoma of the lung with brain mets status post palliative XRT to the left chest wall 07/2017, status post craniectomy with metastatectomy 01/2018, status post palliative carboplatin with abraxane 08/06/17-11/12/17, status post stereotactic radiosurgery 04/04, 04/06, and 04/07 with plans to re-start chemo this month presented to [place] on 04/21 with SOB. patient since admission was found to be in severe sepsis with lactic acidosis. CTA of the chest that showed a small bilateral pulmonary emboli that had mildly decreased since previous imaging on 04/18 as well as findings concerning for pneumonia or aspiration of the right lung base and unchanged lung mass. Cultures were obtained 2 sets. He was started empirically on IV Vanco and Zosyn and admitted to the hospital for further evaluation. Currently, patient lethargic. very short of breath and clinically doing very bad requiring cpap. family at bedside. Await blood cultures. Obtain sputum culture if the patient is able to provide an adequate specimen. Continue to trend WBC with differential daily. Check respiratory infectious panel. Check MRSA screen. Check Legionella UAT. Recommend pulmonary to evaluate. Start Vancomycin IV. Pharmacy to dose. Goal trough ~15. Start Levaquin 750mg IV daily. Continue Zosyn 3.375 grams IV Q8H. Duration of treatment depends on the clinical picture. Monitor renal function and for drug toxicity and dose-adjust antibiotics. Later during the day patient took a turn to the worse and was transferred to the ICU and code status changed to DNR DNI.
[2018-04-23] MEDS ORDERED: methylPREDNISolone 125 MG/2 ML VIAL IVP ONE (10:23)
--- NOTE | 2018-04-23 10:27 | Internal Med Progress Note ---
Hospitalist Progress Note - Encounter Date of Encounter: 04/23/18 Time of Encounter: 10:24 - Subjective Interval History: I have seen and evaluated the patient at bedside. Patient on respiratory distress but patient has been refusing to wear the BiPap. denies chest pain. - Exam Vitals: Temp Pulse Resp BP Pulse Ox 100 F H 119 23 89/64 96 04/23/18 01:00 04/23/18 06:12 04/23/18 07:28 04/23/18 07:28 04/23/18 07:28 Exam: Vitals: reviewed General: Alert and oriented x4. In distress due to shortness of breath. Skin: Normal color, no rash, no lesions. HEENT: EOM, pupils equal, round and reactive. Cardiovascular: Tachycardia, Normal S1 & S2, no rubs, murmurs or gallops. Lungs: Bronchospastic, with scatter bilateral expiratory wheezing, no crackles. Abdomen: Soft, non-tender, no rigidity. Extremities: No edema. Neurological: Normal cognition and motor skills. Rest of the physical exam is non contributory - Assessment and Plan (1) Acute exacerbation of chronic obstructive airways disease Current Visit: Yes Status: Acute Assessment and Plan: Patient on respiratory distress. has been refusing to wear the Bipap. on Duo-nebs Q4RT scheduled add levalbuterol Q6RT PRN, continue methylprednisolone 40mg/IV Q8HRs Pulmonology has been consulted, recommendations appreciated patient with poor prognosis due to lung CA, pneumonia. on broad spectrum IV antibiotics. continue Bipap change diet to full liquid. (2) Acute respiratory failure with hypoxia Current Visit: Yes Status: Acute Assessment and Plan: Plan of care as above. (3) Pulmonary embolism Current Visit: Yes Status: Acute Assessment and Plan: patient on a heparin drip. Hem&Onc has been consulted to discuss fdc anticoagulation options. (4) Hypotension Current Visit: Yes Status: Acute Assessment and Plan: Multifactorial pneumonia, PE, Hx of low BP. BP has been running in the low 90s. 3.2 litters of IV fluids. continue IV fluids stopped due to pulm vascular congestion on x-ray and worsening respiratory status will give NS boluses as needed for resuscitation. (5) Lung cancer Current Visit: Yes Status: Chronic Assessment and Plan: Hem&Onc has been consulted as patient would like to know if there any other treatment option for his condition. (6) Metastasis to brain Current Visit: Yes Status: Chronic Assessment and Plan: outpatient follow up. (7) Pneumonia Current Visit: Yes Status: Acute Assessment and Plan: ID has been consulted. IV antibiotic broaden, started on dual anti-pseudomonal coverage with levofloxacin and piperacillin/tazobactam plus vancomin per pharmacy dosing. b/C: no growth, pending final report sputum culture ordered: pending report. (8) Hypothyroidism Current Visit: Yes Status: Chronic Assessment and Plan: Continue levothyroxine 75mcg/PO daily. (9) Chronic deep vein thrombosis (DVT) Current Visit: Yes Status: Chronic (10) Hypophosphatemia Current Visit: Yes Status: Acute Assessment and Plan: Electrolyte replaced. (11) Severe protein-calorie malnutrition Current Visit: Yes Status: Chronic Assessment and Plan: ensure plus supplement. DVT Prophylaxis: Patient on a heparin drip due to PE. - Summary of Assessment and Plan Summary of Assessment and Plan: Patient to remain in the hospital due to hypoxemic repiratory failure, pneumonia. prognosis is poor. - Time Spent with Patient Total time spent is greater than 50% in coordination of care (as documented) at patient's floor/unit and/or counseling patient: Greater than 35 minutes (40) Plan of Care Discussed with: patient (and the nurse.) Internal Medicine: Result - Labs CBC & Chem 7: 04/23/18 03:49 04/23/18 03:49 Labs: Short CBC 04/23/18 Range/Units 03:49 WBC 9.2 (4.3-11.1) K/mcL Hgb 11.3 L (12.9-16.9) g/dL Hct 34.6 L (37.5-50.1) % Plt Count 167 (140-400) K/mcL Neutrophils # 7.5 (1.6-8.9) K/mcL BMP 04/23/18 03:49 Sodium 139 Potassium 3.6 Chloride 106 Carbon Dioxide 26 BUN 19 Creatinine 0.59 L Glucose 137 H Calcium 8.3 L - ABG Interpretation ABG results: ABG ABG pH 7.36 pH Units (7.32-7.45) 04/21/18 18:23 ABG pCO2 41 mmHg (35-45) 04/21/18 18:23 ABG pO2 71 mmHg (85-104) L 04/21/18 18:23 ABG O2 Saturation 93 % (95-98) L 04/21/18 18:23 PT/INR, D-dimer PT 14.5 Seconds (9.4-12.1) H 04/22/18 09:30 D-Dimer 5719 ng/mLFEU (0-500) H 04/21/18 19:56 - Impressions Impressions Chest X-Ray 04/22/18 15:06 IMPRESSION: Multifocal airspace disease on the right has progressed from prior exam of 04/21/2018. Findings are concerning for multilobar pneumonia. Persistent collapse of the right upper lobe. Severe background emphysema. D/ / 04/22/2018 15:59:40 Newton Vaz MD / radha Interpreting Provider: Newton Vaz MD Echocardiogram Limited Views 04/22/18 17:34 Impressions: Technically sub-optimal due to poor echocardiographic windows. LVEF 60-65%. Moderate concentric left ventricular hypertrophy. Atypical septal motion from posible RV pressure overload. Correlate clinically. Mildly dilated right ventricle. Limited echocardiogram to evaluate LV function. Left Ventricular Wall Motion: Rest Echo Findings All wall segments showed normal motion. Findings: Study Quality * Technically sub-optimal due to poor echocardiographic windows. ECG Findings * Normal sinus rhythm. Left Ventricle * LVEF 60-65%. * Moderate concentric left ventricular hypertrophy. * Atypical septal motion from posible RV pressure overload. Correlate clinically. Right Ventricle * Mildly dilated right ventricle. Left Atrium * Normal left atrial size. Right Atrium * Normal right atrial size. Interatrial Septum * Interatrial septum not well evaluated. Aortic Valve * Trileaflet aortic valve. * Normal aortic valve structure. Mitral Valve * Normal mitral valve structure. Tricuspid Valve * Normal tricuspid valve structure. Aorta * Normally sized aortic root. Pericardium * The pericardium appears normal. IVC * The IVC is not well evaluated. Chest X-Ray 04/23/18 01:31 IMPRESSION: Mildly worsening right-sided airspace disease. D/ / Phan Gillespie MD / Phan Gillespie MD Interpreting Provider: Phan Gillespie MD Consult Discharge Plan - Plan Referrals: NONE,PCP [Primary Care Provider] - (3) Pulmonary embolism Qualifiers: Pulmonary embolism type: unspecified Chronicity: unspecified Acute cor pulmonale presence: without acute cor pulmonale Qualified Code(s): I26.99 - Other pulmonary embolism without acute cor pulmonale (4) Hypotension Qualifiers: Hypotension type: unspecified hypotension type Qualified Code(s): I95.9 - Hypotension, unspecified (5) Lung cancer Qualifiers: Laterality: right Lung location: unspecified part of lung Qualified Code(s): C34.91 - Malignant neoplasm of unspecified part of right bronchus or lung (7) Pneumonia Qualifiers: Pneumonia type: due to unspecified organism Laterality: right Lung location: unspecified part of lung Qualified Code(s): J18.9 - Pneumonia, unspecified organism (8) Hypothyroidism Qualifiers: Hypothyroidism type: unspecified Qualified Code(s): E03.9 - Hypothyroidism, unspecified (9) Chronic deep vein thrombosis (DVT) Qualifiers: DVT location: lower extremity Affected thrombotic vein of extremity: femoral Laterality: left Qualified Code(s): I82.512 - Chronic embolism and thrombosis of left femoral vein
--- NOTE | 2018-04-23 10:55 | Pulmonology Consult Note ---
<Rosario Wallis M - Last Filed: 04/23/18 16:18> Date of Encounter: 04/23/18 Medications and Allergies Albuterol Sulfate [Proair Hfa] 1 puff IH Q4H PRN 07/01/17 [History] Levothyroxine [Synthroid] 75 mcg PO DAILY 07/01/17 [History] Magic Mouthwash [Magic Mouthwash BLM] 5 - 10 ml PO QID PRN #500 ml 07/15/17 [Rx] Polyethylene Glycol 3350 [MiraLAX] 17 gm PO BID PRN #240 powd.pack 08/06/17 [Rx] Sennosides [Senokot] 2 tab PO BID #120 tablet 08/06/17 [Rx] Lidocaine/Prilocaine [Emla] 1 appl TP DAILY #30 gm 12/03/17 [Rx] Dexamethasone [Decadron] 4 mg PO TIDAC 03/11/18 [History] FentaNYL PATCH [Duragesic] 50 mcg TD Q72H 30 Days #10 patch.td72 03/26/18 [Rx] Oxycodone HCl 5 - 10 mg PO Q6H PRN 15 Days #90 tablet 03/26/18 [Rx] Promethazine [Phenergan] 25 mg PO Q6HR PRN #60 tablet 03/26/18 [Rx] Allergy/AdvReac Type Severity Reaction Status Date / Time ibuprofen Allergy Hives Verified 03/11/18 10:51 naproxen [From Aleve] Allergy Hives Verified 03/11/18 10:51 acetaminophen AdvReac Hives Verified 04/23/18 01:20 [From Tylenol Severe Allergy] diphenhydramine AdvReac Hives Verified 04/23/18 01:20 [From Tylenol Severe Allergy] All Systems: The remainder of the systems were reviewed and are negative Physical Examination Vital Signs: Vital Signs, Last 4 Hours Temp Pulse Resp BP Pulse Ox 04/23/18 16:15 98.1 F 04/23/18 15:42 21 97 04/23/18 12:58 168 26 129/97 92 Results - Laboratory Findings CBC and BMP: 04/23/18 03:49 04/23/18 03:49 ABG ABG pH 7.36 pH Units (7.32-7.45) 04/21/18 18:23 ABG pCO2 41 mmHg (35-45) 04/21/18 18:23 ABG pO2 71 mmHg (85-104) L 04/21/18 18:23 ABG O2 Saturation 93 % (95-98) L 04/21/18 18:23 PT/INR, D-dimer PT 14.5 Seconds (9.4-12.1) H 04/22/18 09:30 D-Dimer 5719 ng/mLFEU (0-500) H 04/21/18 19:56 Abnormal lab findings: Abnormal lab results RBC 3.76 M/mcL (4.19-5.50) L 04/23/18 03:49 Hgb 11.3 g/dL (12.9-16.9) L 04/23/18 03:49 Hct 34.6 % (37.5-50.1) L 04/23/18 03:49 Band Neutrophils % 18.0 % (0-4) H 04/23/18 03:49 Metamyelocytes % 5.0 % (0) H 04/23/18 03:49 Myelocytes % 5.0 % (0) H 04/23/18 03:49 Lymphocytes # 0.4 K/mcL (0.6-4.6) L 04/23/18 03:49 Smudge Cells Present (Not Present) A 04/23/18 03:49 Polychromasia 1+ (Not Present) A 04/23/18 03:49 Basophilic Stippling 1+ (Not Present) A 04/23/18 03:49 Anisocytosis 1+ (Not Present) A 04/21/18 14:15 PT 14.5 Seconds (9.4-12.1) H 04/22/18 09:30 D-Dimer 5719 ng/mLFEU (0-500) H 04/21/18 19:56 Heparin Anti-Xa, Unfract 0.08 IU/mL (0.30-0.70) L 04/23/18 11:05 ABG pO2 71 mmHg (85-104) L 04/21/18 18:23 ABG O2 Saturation 93 % (95-98) L 04/21/18 18:23 Creatinine 0.59 mg/dL (0.70-1.30) L 04/23/18 03:49 BUN/Creatinine Ratio 32 (6-26) H 04/23/18 03:49 Glucose 137 mg/dL (70-105) H 04/23/18 03:49 Calcium 8.3 mg/dL (8.6-10.3) L 04/23/18 03:49 Phosphorus 1.7 mg/dL (2.7-4.5) L 04/23/18 03:49 AST 12 Units/L (13-39) L 04/22/18 03:57 Troponin I 0.08 ng/mL (< 0.04) H* 04/21/18 19:56 Serum Total Protein 4.7 g/dL (6.4-8.9) L 04/22/18 03:57 Albumin 2.3 g/dL (3.5-5.7) L 04/22/18 03:57 Albumin/Globulin Ratio 1.0 (1.1-2.2) L 04/22/18 03:57 Ur Specific [place] > 1.030 (1.010-1.025) H 04/22/18 02:11 Urine Protein 30 mg/dL (Neg-Trace) H 04/22/18 02:11 - Microbiology Findings Microbiology Findings: Microbiology, Last 48 Hours 04/22/18 02:11 Legionella Antigen - Final Urine,Random-Not Preferred 04/22/18 11:53 Blood Culture - Preliminary Peripheral Venipuncture Culture is incubating and being continuously monito red for growth. Final report to follow. 04/22/18 11:56 Blood Culture - Preliminary Peripheral Venipuncture Culture is incubating and being continuously monitored for growth. Final report to follow. 04/21/18 14:15 Blood Culture - Preliminary Peripheral Venipuncture Culture is incubating and being continuously monitored for growth. Final report to follow. 04/21/18 14:15 Blood Culture - Preliminary Peripheral Venipuncture Culture is incubating and being continuously monitored for growth. Final report to follow. 04/22/18 02:11 Streptococcus pneumoniae Antigen (M - Final Urine,Random-Not Preferred - Clinical Findings Intake & Output: Intake & Output 04/23/18 04/23/18 04/23/18 07:59 15:59 23:59 Intake Total 226 / 226 480 / 480 Output Total 125 / 125 125 / 125 Balance 101 / 101 355 / 355 Consult Discharge Plan - Plan Referrals: NONE,PCP [Non-Partnered Physician] - - Attending Attestation I examined this patient and my medical decision-making was reviewed with the Resident Physician. I agree with the documented findings, disposition and treatment plan as described except to the extent set forth below. Patient seen and examined. Labs, radiology, chart personally reviewed. I was called by the nurse when patient was in [facility] because his condition is deteriorating and when he arrived there with my resident I found patient very lethargic and hypotensive and respiratory distress on noninvasive ventilation. 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 As we will getting ready for intubation, we had another discussion with the family whether they changed his CODE STATUS to be DNR/DNI and they wanted his rest of the family to come and visit him. Is very unfortunate that his has hearing problem and it is not easy to communicate with her, however with the help of her family she eventually agreed to change his CODE STATUS and also she understood to his prognosis is very poor. At this time palliative care to follow-up and will have him on Pr ecedex and also fentanyl as needed for his pain. Patient will be on broad- spectrum antibiotics and also systemic steroid, is not known this is infectious or malignancies and ideally he will need bronchoscopy and that was the plan if patient get intubated, however with his CODE STATUS I feel is appropriate to have supportive care in terms of continuation of antibiotics and transition to hospice if no response. Patient with acute on chronic respiratory failure and continue noninvasive ventilation at this time. Cardiovascular: Hypertension which could be from sepsis, however giving him more fluid that will deteriorate his respiratory status and the family requested to keep him comfortable GI: Nutrition per dietary and GI prophylaxis per routine Heme: DVT prophylaxis per routine ID: Continue antibiotics and plan to de-escalation Renal; urine out put and renal funtion reviewed Endorcine: blood glucose is monitored Lines: all lines checked and no evidence of infections Skin: skin care to prevent pressure ulcers per nursing routine care I spent 45 min of Critical Care time with this patient. It involved decision making of high complexity to assess, manipulate, and support vital organ system failure and/or to prevent further life threatening deterioration of the patient's condition. The time involved in the performance of separately reportable procedures was not counted toward critical care time. <Monisha Pimentel - Last Filed: 04/23/18 20:38> Date of Encounter: 04/23/18 Time of Encounter: 11:45 Assessment and Plan (1) Severe sepsis Current Visit: Yes Status: Acute - 3/4 SIRS with tachycardia, tachypnea, bandemia and lactic acid peak of 3.4 - Suspected source is pulmonary - CXR shows right sided consolidation - CTA chest showed bilateral lower lobe pulmonary emboli, stable form 04/18 as well as right sided patchy consolidations. Masses in right side unchanged. - Currently on vancomycin, zosyn, levaquin - Blood cultures 04/21, 04/22 NG to date - Legionella and strep negative Plan - Continue Abx until he is transferred to hospice care. - Continue supportive measures. (2) Acute respiratory failure with hypoxia Current Visit: Yes Status: Acute - Possible multifactorial etiology of infectious, PE, COPD, malignancy - Currently on BiPAP - Moderate distress on exam - Objective findings as above - Continue bronchodilators and steroids. - Lengthy discussion with family today and they have elected for a code status of [id number] - Palliative care following, anticipate transfer to hospice care - Continue supportive care until that point. 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 palliative care and oncology are following s/p radiation, last session in 08/14 s/p chemo from july-november 2017 Qualifiers: Laterality: right Lung location: unspecified part of lung Qualified Code(s): C34.91 - Malignant neoplasm of unspecified part of right bronchus or lung (6) Metastasis to brain Current Visit: Yes Status: Chronic as above (7) Pulmonary embolism Current Visit: Yes Status: Acute as above, bilateral change from heparin gtt to lovenox stable vs mildly improved on most recent cta Qualifiers: Pulmonary embolism type: unspecified Chronicity: unspecified Acute cor pulmonale presence: without acute cor pulmonale Qualified Code(s): I26.99 - Other pulmonary embolism without acute cor pulmonale History of Present Illness Consult date: 04/23/18 Requesting physician: Aubrey Gabriel Reason for consult: pneumonia Chief complaint: Dyspnea History of present illness: Mr. Kumar is a 67-year-old male with past medical history of COPD, squamous cell lung cancer with brain metastases, and tobacco abuse who presented to the emergency department for worsening dyspnea x 6 days. Patient's coughing and wheezing is above his baseline, the cough is nonproductive. Dyspnea is worse with exertion. He does not use home oxygen. Patient has inhalers at home, they have not been helpful for several months according to patient's . On arrival to the emergency department patient was afebrile, heart rate was 120, respiratory rate 25, blood pressure 78/44, pulse ox 91%. Initial blood work showed WBC 11.2, 38% bands, d-dimer 5719, lactic acid 2.2 (on repeat 3.4, then 1.5), and troponin 0.08. Most recent chest xray shows mildly increase from previous right sided airspace disease. Today during interview, he was very short of breath and in moderate respiratory distress. Answering questions was difficult due his respiratory status. Past Med Surg Social Fam HX - Past Medical History Medical history: cancer, COPD Additional medical history: Hypothyroidism Psychiatric history: no psych history - Past Surgical History Surgical History: other (Craniectomy with metastatectomy 01/2018) - Social History Smoking Status: Current every day smoker Smokeless Tobacco Status: No Alcohol use: none Drug use: none ROS unobtainable: other (respiratory status, mental status) All Systems: The remainder of the systems were reviewed and are negative - Constitutional Constitutional: chills, no fever(s) - Respiratory Respiratory: cough, wheezing Physical Examination Vital Signs: Vital Signs, Last 4 Hours Pulse Resp BP Pulse Ox 04/23/18 10:35 119 24 91/63 95 04/23/18 07:28 23 89/64 96 General appearance: lethargic, appears uncomfortable, other (moderate respiratory distress) Eyes: nonicteric ENT: oropharynx moist Effort: very labored Inspection: normal Auscultation: bilateral: diminished breath sounds, rhonchi Cardiovascular: regular rate and rhythm (tachycardic) Gastrointestinal: hypoactive bowel sounds, soft, non-tender Integumentary: normal Extremities: no cyanosis, no edema Musculoskeletal: no deformities unable to assess due to mental status anxious Results - Laboratory Findings CBC and BMP: 04/23/18 03:49 04/23/18 03:49 ABG ABG pH 7.36 pH Units (7.32-7.45) 04/21/18 18:23 ABG pCO2 41 mmHg (35-45) 04/21/18 18:23 ABG pO2 71 mmHg (85-104) L 04/21/18 18:23 ABG O2 Saturation 93 % (95-98) L 04/21/18 18:23 PT/INR, D-dimer PT 14.5 Seconds (9.4-12.1) H 04/22/18 09:30 D-Dimer 5719 ng/mLFEU (0-500) H 04/21/18 19:56 Abnormal lab findings: Abnormal lab results RBC 3.76 M/mcL (4.19-5.50) L 04/23/18 03:49 Hgb 11.3 g/dL (12.9-16.9) L 04/23/18 03:49 Hct 34.6 % (37.5-50.1) L 04/23/18 03:49 Band Neutrophils % 18.0 % (0-4) H 04/23/18 03:49 Metamyelocytes % 5.0 % (0) H 04/23/18 03:49 Myelocytes % 5.0 % (0) H 04/23/18 03:49 Lymphocytes # 0.4 K/mcL (0.6-4.6) L 04/23/18 03:49 Smudge Cells Present (Not Present) A 04/23/18 03:49 Polychromasia 1+ (Not Present) A 04/23/18 03:49 Basophilic Stippling 1+ (Not Present) A 04/23/18 03:49 Anisocytosis 1+ (Not Present) A 04/21/18 14:15 PT 14.5 Seconds (9.4-12.1) H 04/22/18 09:30 D-Dimer 5719 ng/mLFEU (0-500) H 04/21/18 19:56 Heparin Anti-Xa, Unfract 0.12 IU/mL (0.30-0.70) L 04/23/18 03:49 ABG pO2 71 mmHg (85-104) L 04/21/18 18:23 ABG O2 Saturation 93 % (95-98) L 04/21/18 18:23 Creatinine 0.59 mg/dL (0.70-1.30) L 04/23/18 03:49 BUN/Creatinine Ratio 32 (6-26) H 04/23/18 03:49 Glucose 137 mg/dL (70-105) H 04/23/18 03:49 Calcium 8.3 mg/dL (8.6-10.3) L 04/23/18 03:49 Phosphorus 1.7 mg/dL (2.7-4.5) L 04/23/18 03:49 AST 12 Units/L (13-39) L 04/22/18 03:57 Troponin I 0.08 ng/mL (< 0.04) H* 04/21/18 19:56 Serum Total Protein 4.7 g/dL (6.4-8.9) L 04/22/18 03:57 Albumin 2.3 g/dL (3.5-5.7) L 04/22/18 03:57 Albumin/Globulin Ratio 1.0 (1.1-2.2) L 04/22/18 03:57 Ur Specific [place] > 1.030 (1.010-1.025) H 04/22/18 02:11 Urine Protein 30 mg/dL (Neg-Trace) H 04/22/18 02:11 - Microbiology Findings Microbiology Findings: Microbiology, Last 48 Hours 04/22/18 02:11 Legionella Antigen - Final Urine,Random-Not Preferred 04/22/18 11:53 Blood Culture - Preliminary Peripheral Venipuncture Culture is incubating and being continuously monitored for growth. Final report to follow. 04/22/18 11:56 Blood Culture - Preliminary Peripheral Venipuncture Culture is incubating and being continuously monitored for growth. Final report to follow. 04/21/18 14:15 Blood Culture - Preliminary Peripheral Venipuncture Culture is incubating and being continuously monitored for growth. Final report to follow. 04/21/18 14:15 Blood Culture - Preliminary Peripheral Venipuncture Culture is incubating and being continuously monitored for growth. Final report to follow. 04/22/18 02:11 Streptococcus pneumoniae Antigen (M - Final Urine,Random-Not Preferred - Clinical Findings Intake & Output: Intake & Output 04/22/18 04/23/18 04/23/18 23:59 07:59 15:59 Intake Total 259 / 259 226 / 226 Output Total 170 / 170 125 / 125 75 / 75 Balance 89 / 101 / 101 -75 / -75
[2018-04-23] MEDS ORDERED: Levalbuterol Neb 1.25 MG/3 ML ONE (11:13)
[2018-04-23] MEDS: Levalbuterol Neb 1.25 MG/3 ML IH SCH ×3 (11:21→19:46)
--- NOTE | 2018-04-23 13:01 | Palliative - Consult Note ---
Date of Encounter: 04/23/18 Time of Encounter: 10:30 - Assessment and Plan (1) Acute exacerbation of chronic obstructive airways disease Current Visit: Yes Status: Acute Assessment and plan: Patient's oxygen saturation 96% on BiPAP during assessment. Continue nebulizer treatment, steroids and oxygen therapy per primary and pulmonary team recommendations. (2) Pneumonia Current Visit: Yes Status: Acute Assessment and plan: Patient receiving IV Antibiotics per primary team. Infectious disease also consulted. Qualifiers: Pneumonia type: due to unspecified organism Laterality: right Lung location: unspecified part of lung Qualified Code(s): J18.9 - Pneumonia, unspecified organism (3) Metastasis to brain Current Visit: Yes Status: Chronic Assessment and plan: Hematology/Oncology consulted. (4) Pulmonary embolism Current Visit: Yes Status: Acute Assessment and plan: Patient has heparin drip infusing. Qualifiers: Pulmonary embolism type: unspecified Chronicity: unspecified Acute cor pulmonale presence: without acute cor pulmonale Qualified Code(s): I26.99 - Other pulmonary embolism without acute cor pulmonale (5) Lung cancer Current Visit: Yes Status: Chronic Assessment and plan: Oncology recommendations appreciated. Patient and his both report patient had appointment with Oncology to start new cancer treatment tomorrow at [facility]. Both report they feel that despite treatment being Palliative in nature, feel cancer is under control. Qualifiers: Laterality: right Lung location: unspecified part of lung Qualified Co de(s): C34.91 - Malignant neoplasm of unspecified part of right bronchus or lung (6) Advanced directives, counseling/discussion Current Visit: No Status: Acute Assessment and plan: Met with patient and his regarding goals of care moving forward. Patient desires to be FULL CODE. Understands risks associated with CPR/Intubation. did not understand necessity for conversation regarding CODE STATUS and GOC discussion. Explained it would be beneficial for her to know patient's wishes should he be unable to tell us what he desires, agrees and reports does not know what he would want. Discussed CPR and Intubation. Patient expressed he is ok with CPR/Intubation despite risks, but does not want senior care trach/ventilator support, nor a PEG Tube. verbalized understanding. Desires continued aggressive treatment at this time. Patient's and patient interested in all potential cancer and lung treatment options to be given by Oncology and Pulmonary teams. Patient's expressed patient has previously had Pneumonia with COPD and Lung Cancer and was able to overcome, desires for this to happen again. Explained concern for simultaneous Pulmonary emboli. Unrealistic with goals of care. Notified Dr. Gabriel of 's type of hearing loss and means to including her in conversation via writing things out on paper versus typing into a telephone for her to read the material. reports feeling upset as she only understands about 50% of what is going on. Answered all questions, addressed all concerns. Palliative care will continue to follow for continued goals of care dicussion. Palliative-CN HPI - Data of Consult Patient: new to practice Consult date: 04/21/18 Requesting Physician: Aubrey Gabriel MD Primary Care Provider: Blanka Lopez - Consult Narrative Palliative Care/Comfort Measures: Palliative care Reason for consult: Lung cancer with brain mets History of present illness: Mr. Kumar is a 67 year old male Arrived to [facility] on 04/21/18 for shortness of breath that had worsened over the last several days. PMH: Lung Cancer with mets to brain and COPD; continues to be a smoker. Chest x-ray could not rule out pneumonia. CTA showing small bilateral lower lobe pulmonary emboli (heparin i nitiated), pneumonia (IV Zosyn), and lung cancer stable. Patient admitted and medically managed for acute exacerbation of chronic obstructive airway disease, hypotension, lung cancer with mets to brain, pneumonia. Repeat chest x-ray showed collapse of RUL. Overnight of 04/22-04/23,patient experienced increased dyspnea requiring additional oxygen support; patient refused to reapply BiPAP and oxygen saturation decreased to 80s% on 15 LPM. Low dose Ativan administered and BiPAP reapplied, resulting in increased oxygen saturation to 90%. Sitter ordered for improved compliance with BiPAP. Infectious disease consulted for sepsis criteria; antibiotic recommendations made. Hematology/Oncology consulted for recommendations for anticoagulation and cancer treatment options, pending. Per chart review, patient is an Oncology patient of Dr. Napier for radiation oncology; treatment Palliative in nature. Palliative care consulted related to Lung cancer diagnosis with metastasis. Patient lying in bed with eyes open, sitter present at bedside. Patient alert and oriented times 3. BiPAP in place upon arrival, assisted to remove for conversation and reapplied prior to departure. Dr. Gabriel came to room to discuss patients clinical status/treatment plan during course of conversa tion. Patients arrived to bedside at initiation of conversation/introduction. Patients has difficulty with hearing loss (neurological), therefore she must read lips and speak slowly. Ensured patients understood conversation with Dr. Gabriel and myself by writing down the material being covered; verbalized understanding. Patient denies anxiety, nausea and vomiting. Patient reports discomfort/pain and dyspnea. CC: Aubrey Gabriel MD - Time Spent with Patient Time: Total time spent is greater than 50% in coordination of care (as documented) at patient's floor/unit and/or counseling patient: Time with patient: 60 minutes Past Med Surg Social Fam HX - Past Medical History Medical history: cancer, COPD Additional medical history: Hypothyroidism Psychiatric history: no psych history - Past Surgical History Surgical History: other (Craniectomy with metastatectomy 01/2018) - Social History Smoking Status: Current every day smoker Smokeless Tobacco Status: No Alcohol use: none Drug use: none Medications and Allergies Albuterol Sulfate [Proair Hfa] 1 puff IH Q4H PRN 07/01/17 [History] Levothyroxine [Synthroid] 75 mcg PO DAILY 07/01/17 [History] Magic Mouthwash [Magic Mouthwash BLM] 5 - 10 ml PO QID PRN #500 ml 07/15/17 [Rx] Polyethylene Glycol 3350 [MiraLAX] 17 gm PO BID PRN #240 powd.pack 08/06/17 [Rx] Sennosides [Senokot] 2 tab PO BID #120 tablet 08/06/17 [Rx] Lidocaine/Prilocaine [Emla] 1 appl TP DAILY #30 gm 12/03/17 [Rx] Dexamethasone [Decadron] 4 mg PO TIDAC 03/11/18 [History] FentaNYL PATCH [Duragesic] 50 mcg TD Q72H 30 Days #10 patch.td72 03/26/18 [Rx] Oxycodone HCl 5 - 10 mg PO Q6H PRN 15 Days #90 tablet 03/26/18 [Rx] Promethazine [Phenergan] 25 mg PO Q6HR PRN #60 tablet 03/26/18 [Rx] Allergy/AdvReac Type Severity Reaction Status Date / Time ibuprofen Allergy Hives Verified 03/11/18 10:51 naproxen [From Aleve] Allergy Hives Verified 03/11/18 10:51 acetaminophen AdvReac Hives Verified 04/23/18 01:20 [From Tylenol Severe Allergy] diphenhydramine AdvReac Hives Verified 04/23/18 01:20 [From Tylenol Severe Allergy] - Constitutional Constitutional ROS PAL: fatigue, lethargy - Cardiovascular Cardiovascular ROS: dyspnea on exertion, no chest pain, no pedal edema - Respiratory Respiratory: cough, dyspnea, dyspnea on exertion, no hemoptysis, no chest congestion - Gastrointestinal Gastrointestinal: no abdominal pain, no change in stool character - Genitourinary Genitourinary ROS male: no dysuria - Integumentary ROS Integumentary: dry skin - Neurological Neurological ROS: disequilibrium (has regained 90% balance according to cancer center record.), no behavioral changes, no confusion, no memory loss - Psychiatric Psychiatric general PM: no anxiety Palliative Care-Exam - Constitutional Vitals: Temp Pulse Resp BP Pulse Ox 99 F 126 24 124/81 93 04/23/18 11:49 04/23/18 11:49 04/23/18 11:49 04/23/18 11:49 04/23/18 11:49 General appearance: Present: cooperative, mild distress, thin - Head Head Exam: Present: atraumatic, normal inspection - Eye Eye exam: Present: normal appearance Pupils: Absent: fixed - ENT ENT exam: Present: mucous membranes dry, normal external ear exam - Expanded ENT Exam Mouth Exam: Absent: drooling - Neck Neck exam: Present: full ROM, normal inspection - Respiratory Respiratory exam: Present: accessory muscle use, respiratory distress, rhonchi, wheezes, tachypnea - Cardiovascular Cardiovascular exam: Present: +S1, +S2 - Expanded Cardiovascular Exam Peripheral pulses: 1+: Posterior Tibialis (L), Posterior Tibialis (R), Dorsalis Pedis (L) PM, Dorsalis Pedis (R) PM, 2+: Radial (L), Radial (R) - GI/Abdominal Exam GI/Abdominal exam: Present: normal bowel sounds, soft. Absent: tenderness - Rectal Rectal Exam: Present: deferred - Extremities Exam Extremities exam: Absent: calf tenderness, normal inspection (skin, vascular type changes/dryness noted to bilateral LE.), pedal edema, tenderness - Back Exam Back exam: Present: normal inspection - Neurological Exam Neurological exam: Present: alert, oriented X3, strengths equal and symetr throughout. Absent: altered - Expanded Neurological Exam Coma Scale Eye Opening: Spontaneous Coma Scale Motor Response: Obeys Commands Coma Scale Verbal Response: Oriented Coma Scale Total: 15 - Psychiatric Psychiatric exam: Present: normal affect, normal mood Internal Medicine - CN: Reslt - Labs CBC & Chem 7: 04/23/18 03:49 04/23/18 03:49 Labs: Short CBC 04/23/18 Range/Units 03:49 WBC 9.2 (4.3-11.1) K/mcL Hgb 11.3 L (12.9-16.9) g/dL Hct 34.6 L (37.5-50.1) % Plt Count 167 (140-400) K/mcL Neutrophils # 7.5 (1.6-8.9) K/mcL BMP 04/23/18 03:49 Sodium 139 Potassium 3.6 Chloride 106 Carbon Dioxide 26 BUN 19 Creatinine 0.59 L Glucose 137 H Calcium 8.3 L - ABG Interpretation ABG results: ABG ABG pH 7.36 pH Units (7.32-7.45) 04/21/18 18:23 ABG pCO2 41 mmHg (35-45) 04/21/18 18:23 ABG pO2 71 mmHg (85-104) L 04/21/18 18:23 ABG O2 Saturation 93 % (95-98) L 04/21/18 18:23 PT/INR, D-dimer PT 14.5 Seconds (9.4-12.1) H 04/22/18 09:30 D-Dimer 5719 ng/mLFEU (0-500) H 04/21/18 19:56 - Impressions Impressions Chest X-Ray 04/22/18 15:06 IMPRESSION: Multifocal airspace disease on the right has progressed from prior exam of 04/21/2018. Findings are concerning for multilobar pneumonia. Persistent collapse of the right upper lobe. Severe background emphysema. D/ / 04/22/2018 15:59:40 Newton Vaz MD / radha Interpreting Provider: Newton Vaz MD Chest X-Ray 04/23/18 01:31 IMPRESSION: Mildly worsening right-sided airspace disease. D/ / Phan Gillespie MD / Phan Gillespie MD Interpreting Provider: Phan Gillespie MD Consult Discharge Plan - Plan Referrals: NONE,PCP [Non-Partnered Physician] - Palliative Quality Palliative Quality: Screen for Code Status: Yes, Screen for Goals of Care: Yes, Screen for Pain: Yes, If Pain Regimen Started, Initiate Bowel Regimen: Yes, Screen for Nausea/Vomitting: Yes Code Status: 04/21/18 16:35 Resuscitation Status: Active [RES] Routine Comment: Resuscitation Status: Full Code Palliative Scale - Palliative Performance Scale How ambulatory is this patient?: Mainly sit / lie What is patient's level of activity and evidence of disease?: Unable normal job/work, Significant disease How much self-care assistance does patient require?: Considerable assistance required How much oral intake does the patient have?: Normal or reduced What is this patient's level of consciousness?: Full or confusion Palliative Performance Score: 50 %
[2018-04-23] MEDS: Levofloxacin 750 MG/150 ML 750 MG/150 ML BAG IVPB SCH (14:21)
[2018-04-23] MEDS ORDERED: *HR* FentaNYL (PF) 100 MCG/2 ML VIAL IVP PRN (15:14)
[2018-04-23] MEDS ORDERED: Dexmedetomidine HCl 400 MCG/100 ML MLS IVC SCH (15:15)
[2018-04-23] MEDS: Heparin 25,000 UNIT/500 ML D5W 25,000 UNIT/500 ML BAG IVC SCH (15:49)
--- NOTE | 2018-04-23 16:11 | Electrocardiograph Report ---
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
--- NOTE | 2018-04-23 16:23 | Electrocardiograph Report ---
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
[2018-04-23] MEDS ORDERED: *HR* Metoprolol 5 MG/5 ML VIAL IVP ONE (17:02)
[2018-04-23] MEDS ORDERED: *HR* Metoprolol 5 MG/5 ML VIAL IVP PRN (18:10)
--- NOTE | 2018-04-23 18:25 | Oncology Inp Consult Note ---
<JessiOsmin - Last Filed: 04/23/18 18:30> Date of Encounter: 04/23/18 Time of Encounter: 18:30 - Data of Consult Requesting Physician: Aubrey Gabriel MD Primary Care Provider: Blanka Lopez Medications and Allergies Albuterol Sulfate [Proair Hfa] 1 puff IH Q4H PRN 07/01/17 [History] Levothyroxine [Synthroid] 75 mcg PO DAILY 07/01/17 [History] Magic Mouthwash [Magic Mouthwash BLM] 5 - 10 ml PO QID PRN #500 ml 07/15/17 [Rx] Polyethylene Glycol 3350 [MiraLAX] 17 gm PO BID PRN #240 powd.pack 08/06/17 [Rx] Sennosides [Senokot] 2 tab PO BID #120 tablet 08/06/17 [Rx] Lidocaine/Prilocaine [Emla] 1 appl TP DAILY #30 gm 12/03/17 [Rx] Dexamethasone [Decadron] 4 mg PO TIDAC 03/11/18 [History] FentaNYL PATCH [Duragesic] 50 mcg TD Q72H 30 Days #10 patch.td72 03/26/18 [Rx] Oxycodone HCl 5 - 10 mg PO Q6H PRN 15 Days #90 tablet 03/26/18 [Rx] Promethazine [Phenergan] 25 mg PO Q6HR PRN #60 tablet 03/26/18 [Rx] Allergy/AdvReac Type Severity Reaction Status Date / Time ibuprofen Allergy Hives Verified 03/11/18 10:51 naproxen [From Aleve] Allergy Hives Verified 03/11/18 10:51 acetaminophen AdvReac Hives Verified 04/23/18 01:20 [From Tylenol Severe Allergy] diphenhydramine AdvReac Hives Verified 04/23/18 01:20 [From Tylenol Severe Allergy] Consult Discharge Plan - Plan Referrals: NONE,PCP [Non-Partnered Physician] - Inpatient Charges Provider: Dr. Hugo Bowen Consult - Inpatient: [id number] - Attending Attestation I examined this patient and my medical decision-making was reviewed with the Advanced Practice Nurse. I agree with the documented findings, disposition and treatment plan as described except to the extent set forth below. -The patient has a h/o stage IV SCCa of the lung with recent progression of disease. Plans were to start Opdivo in the near future. He now presents with SOB with PNA, COPD Exacerbation, AMS, and b/l PEs. He is currently on BIPAP with slight improvement in AMS, and a Heparin gtt. -We discussed code status in detail with the patient's family and per the patient's previous goals of care, he will remain DNR/ DNI as he and his discussed that he would not want to have a tube down his throat or be on mechanical ventilation if the situation were to arise. -His prognosis remains poor and he will likely transition to hospice if he continues to deteriorate, which is appropriate per his clinical condition. <Nadege Frances - Last Filed: 04/24/18 13:29> Date of Encounter: 04/23/18 Assessment and Plan (1) Lung cancer Status: Chronic Assessment and plan: Treatment summary as described in HPI, briefly, patient diagnosed with stage SANTI squamous cell carcinoma of the lung in June 2017. Progressed on first line treatment with Abraxane/Carboplatin e-staging scans on 02/11/2018 with evidence of disease progression in the lung with increase in the primary lung mass as well as satellite metastatic disease. MRI of the brain 02/19/2018 revealed isolated large right cerebellar metastasis. He is status post craniectomy with metastatectomy 02/26/2018. He completed Stereotactic radiotherapy April 04, and . He was planned to start palliative intent nivolumab around April 08 however there appears to have been a delay. Admitted with sepsis, pneumonia, acute respiratory distress requiring bipap, COPD exacerbation and acute PE. He had a CTA of the chest that showed a small bilateral pulmonary emboli that had mildly decreased since previous imaging on 04/18 as well as findings concerning for pneumonia or aspiration of the right lung base and unchanged lung mass. Respiratory condition deteriorated earlier today despite bipap. Transferred to ICU. From discussions with ICU team and family at that time, the decision was made to change code status to DNR/DNI. This plan was again verified with patients family and at bedside. He will continue with supportive measures and palliative care consultation. Will continue to follow from afar, agree with comfort care measures as this is patients and 's wishes. Should his clinical status improve will discuss appropriateness for treatment in future. Qualifiers: Laterality: right Lung location: unspecified part of lung Qualified Code(s): C34.91 - Malignant neoplasm of unspecified part of right bronchus or lung - Data of Consult Patient: known to practice within the last 3 years Consult date: 04/23/18 Requesting Physician: Aubrey Gabriel MD Primary Care Provider: Blanka Lopez - Consult Narrative Reason for consult: Metastatic squamous cell carcinoma lung History of present illness: Mr. Kumar is a 67 year old male known to our practive, patient of Dr. Monroe, diagnosed with AJCC clinical stage SANTI metastatic squamous cell carcinoma of the lung in June 2017. Prior treatment therapy includes palliative XRT to left chest wall completed 07/31/17 and Carboplatin with Abraxane 08/06/17-12/11/17. Day 15 Abraxane discontinued starting cycle 5 secondary to cytopenias (11/12/2017). He had re-staging scans on 02/11/2018 with evidence of disease progression in the lung with increase in the primary lung mass as well as satellite metastatic disease. MRI of the brain 02/19/2018 revealed isolated large right cerebellar metastasis. He is status post craniectomy with metastatectomy 02/26/2018. He completed Stereotactic radiotherapy April 04, and . He was planned to start palliative intent nivolumab around April 08 however it appears p atient did not show to appointments. Patient had CT imaging of the chest/abdomen/pelvis on 04/18/2018 which revealed stable masslike consolidations in the right middle and right upper lobe, stable to decreased conspicuity of reticulonodular opacities, however, had shown filling defects within the lower lobe pulmonary arteries bilaterally, compatible with age-indeterminate but likely acute to subacute pulmonary emboli. Oncology was notified with CT results and recommendation was made to have patient evaluated in ER however it is unclear as to what transpired following this recommendation. Patient presented to [facility] on 04/21/2018 with report of worsening SOB. Upon arrival, he was tachycardic, tachypneic, hypotensive, and hypoxic. He had a CTA of the chest that showed a small bilateral pulmonary emboli that had mildly decreased since previous imaging on 04/18 as well as findings concerning for pneumonia or aspiration of the right lung base and unchanged lung mass. He had a lower extremity venous Doppler study that showed chronic DVT in the left common femoral, left superficial femoral, and left popliteal veins. Patient was admitted on heparin gtt, ID was consulted for further treatment recommendations. Oncology initially consulted per patients and families request for discussion in regards to next steps in treatment and AC recommendations. Later this morning, patients respiratory symptoms worsened despite non-invasive ventilatory support with bipap, he was transferred to ICU. Reviewed Dr. Wallis's note, at that time following discussion with patients family, decision was made not to intubate, code status changed to DNR-DNI, palliative care has been consulted. Past Med Surg Social Fam HX - Past Medical History Medical history: cancer, COPD Additional medical history: Hypothyroidism Psychiatric history: no psych history - Past Surgical History Surgical History: other (Craniectomy with metastatectomy 01/2018) - Social History Smoking Status: Current every day smoker Smokeless Tobacco Status: No Alcohol use: none Drug use: none ROS unobtainable: due to mental status, other (Bipap) Oncology - Exam - Constitutional General appearance: no febrile Exam: mild distress, on bipap, drowsy and does not follow commands - Head Head exam: Present: atraumatic - ENT Additional comments: unable to examine while on continuous bipap - Respiratory Respiratory exam: Present: decreased breath sounds, wheezes. Absent: respiratory distress - Cardiovascular Cardiovascular exam: Present: irregular rhythm, tachycardia - GI/Abdominal GI/Abdominal exam: Present: normal bowel sounds, soft. Absent: tenderness - Extremities Exam Extremities exam: Present: normal inspection - Neurological Exam Neurological exam: Present: altered Additional comments: currently does not follow commands - Psychiatric Psychiatric exam: Present: anxious - Skin Skin exam: Present: dry, normal color, warm
[2018-04-24 03:26] LABS: Hematocrit 39.6 % (37.5-50.1); Hemoglobin 12.4 g/dL (12.9-16.9); Mean Corpuscular HGB Conc 31.3 g/dL (31.6-35.5); Mean Corpuscular Volume 95.7 fL (83.0-100.0); Mean Platelet Volume 10.2 fL (9.4-12.4); Nucleated Red Blood Cells 0.4 /100 WBC (0); Platelet Count 167 K/mcL (140-400); Red Blood Count 4.14 M/mcL (4.19-5.50); Red Cell Distribution Width 14.8 % (11.5-14.5)
[2018-04-24 03:40] LABS: BUN/Creatinine Ratio 35 (6-26); Blood Urea Nitrogen 36 mg/dL (8-23); Calcium 8.4 mg/dL (8.6-10.3); Carbon Dioxide 27 mEq/L (23-29); Chloride 109 mEq/L (98-107); Glucose 148 mg/dL (70-105); Magnesium 1.9 mg/dL (1.6-2.6); Osmolality,Calculated 307 (280-300); Phosphorous 4.6 mg/dL (2.7-4.5); Potassium 4.3 mEq/L (3.5-5.1); Sodium 143 mEq/L (136-145); eGFR For Non-African Americans > 60 (> 60)
[2018-04-24] MEDS: Levalbuterol Neb 1.25 MG/3 ML IH SCH ×3 (03:57→15:47)
[2018-04-24] MEDS: Ipratropium Neb 0.5 MG NEBULIZER IH SCH ×4 (03:57→15:47)
[2018-04-24 03:58] LABS: Lymphocytes # 0.8 K/mcL (0.6-4.6); Monocytes # 0.2 K/mcL (0.0-1.3); Neutrophils # 7.1 K/mcL (1.6-8.9)
[2018-04-24 03:59] LABS: Platelet Estimate Normal (Normal); Reactive Lymphocytes Present (Not Present); Toxic Granulation Present (Not Present)
[2018-04-24] MEDS ORDERED: 0.9 % Sodium Chloride 500 ML IVC ONE (06:05)
[2018-04-24] MEDS ORDERED: 0.9 % Sodium Chloride 500 ML ONE (06:09)
--- NOTE | 2018-04-24 07:14 | Pulmonology Progress Note ---
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 At this time, family is okay with using vasopressors to support his blood pressure and understand that this is a temporizing measure. Family doesn't want patient to be intubated and they understand that without invasive mechanical ventilation his ability to breathe on his own will continue to decline, his breathing will eventually stop, and he will . Time was taken to explain that we will use medication to keep the patient calm and comfortable, allowing him to pass away peacefully. Family is in agreement with decision to not intubate and to pursue comfort measures only. Objective PUL Vital signs: Last Vital Signs Temp 97.3 F L 04/23/18 23:00 Pulse 105 04/24/18 06:00 Resp 24 04/24/18 06:00 BP 82/54 04/24/18 06:00 Pulse Ox 90 04/24/18 06:00 Results - Laboratory Findings CBC and BMP: 04/24/18 03:00 04/24/18 03:00 ABG ABG pH 7.36 pH Units (7.32-7.45) 04/21/18 18:23 ABG pCO2 41 mmHg (35-45) 04/21/18 18:23 ABG pO2 71 mmHg (85-104) L 04/21/18 18:23 ABG O2 Saturation 93 % (95-98) L 04/21/18 18:23 PT/INR, D-dimer PT 14.5 Seconds (9.4-12.1) H 04/22/18 09:30 D-Dimer 5719 ng/mLFEU (0-500) H 04/21/18 19:56 Abnormal lab findings: Abnormal lab results RBC 4.14 M/mcL (4.19-5.50) L 04/24/18 03:00 Hgb 12.4 g/dL (12.9-16.9) L 04/24/18 03:00 MCHC 31.3 g/dL (31.6-35.5) L 04/24/18 03:00 RDW 14.8 % (11.5-14.5) H 04/24/18 03:00 Band Neutrophils % 16.0 % (0-4) H 04/24/18 03:00 Metamyelocytes % 12.0 % (0) H 04/24/18 03:00 Myelocytes % 4.0 % (0) H 04/24/18 03:00 Nucleated RBCs/100 WBC 0.4 /100 WBC (0) H 04/24/18 03:00 Reactive Lymphocytes Present (Not Present) A 04/24/18 03:00 Smudge Cells Present (Not Present) A 04/23/18 03:49 Toxic Granulation Present (Not Present) A 04/24/18 03:00 Polychromasia 1+ (Not Present) A 04/23/18 03:49 Basophilic Stippling 1+ (Not Present) A 04/23/18 03:49 Anisocytosis 1+ (Not Present) A 04/21/18 14:15 PT 14.5 Seconds (9.4-12.1) H 04/22/18 09:30 D-Dimer 5719 ng/mLFEU (0-500) H 04/21/18 19:56 Heparin Anti-Xa, Unfract 0.08 IU/mL (0.30-0.70) L 04/23/18 11:05 ABG pO2 71 mmHg (85-104) L 04/21/18 18:23 ABG O2 Saturation 93 % (95-98) L 04/21/18 18:23 Chloride 109 mEq/L (98-107) H 04/24/18 03:00 BUN 36 mg/dL (8-23) H 04/24/18 03:00 BUN/Creatinine Ratio 35 (6-26) H 04/24/18 03:00 Glucose 148 mg/dL (70-105) H 04/24/18 03:00 POC Glucose 162 mg/dL (70-99) H 04/23/18 13:40 Calculated Osmolality 307 (280-300) H 04/24/18 03:00 Calcium 8.4 mg/dL (8.6-10.3) L 04/24/18 03:00 Phosphorus 4.6 mg/dL (2.7-4.5) H 04/24/18 03:00 AST 12 Units/L (13-39) L 04/22/18 03:57 Troponin I 0.08 ng/mL (< 0.04) H* 04/21/18 19:56 Serum Total Protein 4.7 g/dL (6.4-8.9) L 04/22/18 03:57 Albumin 2.3 g/dL (3.5-5.7) L 04/22/18 03:57 Albumin/Globulin Ratio 1.0 (1.1-2.2) L 04/22/18 03:57 Ur Specific [place] > 1.030 (1.010-1.025) H 04/22/18 02:11 Urine Protein 30 mg/dL (Neg-Trace) H 04/22/18 02:11 - Microbiology Findings Microbiology Findings: Microbiology, Last 48 Hours 04/22/18 02:11 Legionella Antigen - Final Urine,Random-Not Preferred 04/22/18 11:53 Blood Culture - Preliminary Peripheral Venipuncture Culture is incubating and being continuously monit ored for growth. Final report to follow. 04/22/18 11:56 Blood Culture - Preliminary Peripheral Venipuncture Culture is incubating and being continuously monitored for growth. Final report to follow. 04/21/18 14:15 Blood Culture - Preliminary Peripheral Venipuncture Culture is incubating and being continuously monitored for growth. Final report to follow. 04/21/18 14:15 Blood Culture - Preliminary Peripheral Venipuncture Culture is incubating and being continuously monitored for growth. Final report to follow. 04/22/18 02:11 Streptococcus pneumoniae Antigen (M - Final Urine,Random-Not Preferred - Clinical Findings Intake & Output: Intake & Output 04/23/18 04/23/18 04/24/18 15:59 23:59 07:59 Intake Total 480 / 480 350 / 350 600 / 600 Output Total 125 / 125 0 / 0 Balance 355 / 355 350 / 350 600 / 600 Weight 55.6 kg Consult Discharge Plan - Plan Referrals: NONE,PCP [Non-Partnered Physician] - <Surjit Stallworth W - Last Filed: 04/24/18 13:24> Date of Encounter: 04/24/18 Objective PUL Vital signs: Last Vital Signs Temp 98.3 F 04/24/18 08:00 Pulse 98 04/24/18 11:50 Resp 17 04/24/18 11:50 BP 101/65 04/24/18 11:50 Pulse Ox 85 04/24/18 11:50 Results - Laboratory Findings CBC and BMP: 04/24/18 03:00 04/24/18 03:00 ABG ABG pH 7.36 pH Units (7.32-7.45) 04/21/18 18:23 ABG pCO2 41 mmHg (35-45) 04/21/18 18:23 ABG pO2 71 mmHg (85-104) L 04/21/18 18:23 ABG O2 Saturation 93 % (95-98) L 04/21/18 18:23 PT/INR, D-dimer PT 14.5 Seconds (9.4-12.1) H 04/22/18 09:30 D-Dimer 5719 ng/mLFEU (0-500) H 04/21/18 19:56 Abnormal lab findings: Abnormal lab results RBC 4.14 M/mcL (4.19-5.50) L 04/24/18 03:00 Hgb 12.4 g/dL (12.9-16.9) L 04/24/18 03:00 MCHC 31.3 g/dL (31.6-35.5) L 04/24/18 03:00 RDW 14.8 % (11.5-14.5) H 04/24/18 03:00 Band Neutrophils % 16.0 % (0-4) H 04/24/18 03:00 Metamyelocytes % 12.0 % (0) H 04/24/18 03:00 Myelocytes % 4.0 % (0) H 04/24/18 03:00 Nucleated RBCs/100 WBC 0.4 /100 WBC (0) H 04/24/18 03:00 Reactive Lymphocytes Present (Not Present) A 04/24/18 03:00 Smudge Cells Present (Not Present) A 04/23/18 03:49 Toxic Granulation Present (Not Present) A 04/24/18 03:00 Polychromasia 1+ (Not Present) A 04/23/18 03:49 Basophilic Stippling 1+ (Not Present) A 04/23/18 03:49 Anisocytosis 1+ (Not Present) A 04/21/18 14:15 PT 14.5 Seconds (9.4-12.1) H 04/22/18 09:30 D-Dimer 5719 ng/mLFEU (0-500) H 04/21/18 19:56 Heparin Anti-Xa, Unfract 0.08 IU/mL (0.30-0.70) L 04/23/18 11:05 ABG pO2 71 mmHg (85-104) L 04/21/18 18:23 ABG O2 Saturation 93 % (95-98) L 04/21/18 18:23 Chloride 109 mEq/L (98-107) H 04/24/18 03:00 BUN 36 mg/dL (8-23) H 04/24/18 03:00 BUN/Creatinine Ratio 35 (6-26) H 04/24/18 03:00 Glucose 148 mg/dL (70-105) H 04/24/18 03:00 POC Glucose 162 mg/dL (70-99) H 04/23/18 13:40 Calculated Osmolality 307 (280-300) H 04/24/18 03:00 Calcium 8.4 mg/dL (8.6-10.3) L 04/24/18 03:00 Phosphorus 4.6 mg/dL (2.7-4.5) H 04/24/18 03:00 AST 12 Units/L (13-39) L 04/22/18 03:57 Troponin I 0.08 ng/mL (< 0.04) H* 04/21/18 19:56 Serum Total Protein 4.7 g/dL (6.4-8.9) L 04/22/18 03:57 Albumin 2.3 g/dL (3.5-5.7) L 04/22/18 03:57 Albumin/Globulin Ratio 1.0 (1.1-2.2) L 04/22/18 03:57 Ur Specific [place] > 1.030 (1.010-1.025) H 04/22/18 02:11 Urine Protein 30 mg/dL (Neg-Trace) H 04/22/18 02:11 - Microbiology Findings Microbiology Findings: Microbiology, Last 48 Hours 04/22/18 02:11 Legionella Antigen - Final Urine,Random-Not Preferred 04/22/18 11:53 Blood Culture - Preliminary Peripheral Venipuncture Culture is incubating and being continuously monitored for growth. Final report to follow. 04/22/18 11:56 Blood Culture - Preliminary Peripheral Venipuncture Culture is incubating and being continuously monitored for growth. Final report to follow. 04/21/18 14:15 Blood Culture - Preliminary Peripheral Venipuncture Culture is incubating and being continuously monitored for growth. Final report to follow. 04/21/18 14:15 Blood Culture - Preliminary Peripheral Venipuncture Culture is incubating and being continuously danielle tored for growth. Final report to follow. 04/22/18 02:11 Streptococcus pneumoniae Antigen (M - Final Urine,Random-Not Preferred - Clinical Findings Intake & Output: Intake & Output 04/23/18 04/24/18 04/24/18 23:59 07:59 15:59 Intake Total 350 / 350 615 / 615 Output Total 0 / 0 Balance 350 / 350 615 / 615 Weight 55.6 kg - Attending Attestation I examined this patient and my medical decision-making was reviewed with the Resident Physician. I agree with the documented findings, disposition and treatment plan as described except to the extent set forth below. We independently had [id number] contact with the patient I spent 35min of Critical Care time with this patient. It involved decision making of high complexity to assess, manipulate, and support vital organ system failure and/or to prevent further life threatening deterioration of the patient's condition. The time involved in the performance of separately reportable procedures was not counted toward critical care time. Patient seen and examined at bedside Labs, radiology, chart personally reviewed. Management was reviewed during multidisciplinary critical care rounds. SALES SUPPORT SPECIALIST: Patient is obtunded likely secondary to hypotension and suspected hypercapnia Pulm: Acute on chronic hypoxic respiratory failure which is worsened he is on maximal NIPPV support with worsening hypoxemia likely secondary to alveolar hypoventilation and hypercarbia secondary to pneumonia Cards: Septic shock complicated by combination of suspected respiratory acidosis and sepsis GI: NPO Renal: UOP Monitored, Cont to Trend sCr and monitor Electrolytes. ID: He is on broad-spectrum antibiotics for suspected pneumonia Heme/Onc: He has metastatic non-small cell lung cancer with overall poor prognosis Endo: Glucose Monitored Integ/MSK: Skin Care per routine ICU Nursing Protocol to prevent ulcers. Lines: All lines examined without evidence of infection : Dispo: He is in ICU for close monitoring CODE: I had an extensive conversation with the patient's surrogate decision makers including his and son it was clear when I evaluated the patient in the morning that he would need to have endotracheal intubation and vasopressor support for any chance of survival. After extensive conversation with the family about the clinical course and his overall poor prognosis of the family including the made the final decision to make the patient comfortable and comfort care measures were pursued palliative care assisted in these conversations. The patient was unable to participate in giving a history and/or making treatment decisions. The discussion was necessary for determining treatment decision. This discussion took place in the [ICU]. The total meeting time was 20minutes
[2018-04-24] MEDS ORDERED: Norepinephrine 4 MG in D5% in Water 250 ML IVC SCH (07:30)
[2018-04-24] MEDS ORDERED: *HR* Enoxaparin 60 MG/0.6 ML SYRINGE SQ SCH (08:00)
[2018-04-24] MEDS: Sennosides/Docusate Sodium TABLET PO SCH (08:41)
[2018-04-24] MEDS: Piperacillin/Tazobactam 3.375 GM in 0.9 % Sodium Chloride Mini Bag 100 ML IVPB SCH (08:59)
[2018-04-24] MEDS: MethylPREDNISolone 40 MG/ML VIAL IVP SCH (09:00)
[2018-04-24] MEDS: Levofloxacin 750 MG/150 ML 750 MG/150 ML BAG IVPB SCH (09:01)
--- NOTE | 2018-04-24 09:42 | Palliative Progress Note ---
Date of Encounter: 04/24/18 Time of Encounter: 09:00 - Assessment and plan (1) Acute exacerbation of chronic obstructive airways disease Current Visit: Yes Status: Acute Assessment and plan: Patient BiPAP dependent at this time. 89% on 100% BiPAP. (2) Pneumonia Current Visit: Yes Status: Acute Assessment and plan: IV antibiotics being managed by ICU team. Qualifiers: Pneumonia type: due to unspecified organism Laterality: right Lung location: unspecified part of lung Qualified Code(s): J18.9 - Pneumonia, unspecified organism (3) Metastasis to brain Current Visit: Yes Status: Chronic (4) Pulmonary embolism Current Visit: Yes Status: Acute Assessment and plan: Lovenox scheduled. Qualifiers: Pulmonary embolism type: unspecified Chronicity: unspecified Acute cor pulmonale presence: without acute cor pulmonale Qualified Code(s): I26.99 - O ther pulmonary embolism without acute cor pulmonale (5) Lung cancer Current Visit: Yes Status: Chronic Qualifiers: Laterality: right Lung location: unspecified part of lung Qualified Code(s): C34.91 - Malignant neoplasm of unspecified part of right bronchus or lung (6) Advanced directives, counseling/discussion Current Visit: No Status: Acute Assessment and plan: Patient clinically deteriorating. Met with family. Goal to keep patient alive until all patient's children can arrive, at which time patient will be made comfortable. Desires continued pressor support and BiPAP management at this time, desires to remove from machines upon arrival of all family members. Explained to family with worsening hypotension and breathing status, patient may not survive family's commute from [place]; verbalized understanding. Family in agreement for Fentanyl and Ativan (medications for comfort) at time of removing of machines. One time orders given. Spoke with ICU team. Plan to transition patient to 2A nursing unit if patient stabilizes post removal of pressor support and BiPAP, under hospitalist care. kept informed and agreeable to treatment plan based on written messages on [facility] board. 1240: Met with . Family all present. Desire patient to be made comfortable. Patient to be taken off pressor support and BiPAP. Transition to 2LNC. Add scopalamine and Atropine drops PRN. - Time Spent With Patient Total time spent is greater than 50% in coordination of care (as documented) at patient's floor/unit and/or counseling patient: Greater than 35 minutes - Subjective Interval history: Patient lying in bed with eyes open upon arrival for assessment. Patient non reactive to verbal, tactile, or painful stimulation. Pupils non-reactive. Primary RN present at bedside. No family present. Patient found to be hypotensive with pressor support. Attempts made to find family, Dr. Stallworth arrived and escorted family to bedside. Family updated with current clinical status and overall prognosis remains poor. Patient's family had decided against ventilator support and desires to keep CODE STATUS DNRCCA/DNI. BiPAP in place at 100%, oxygen saturation 89%. - Constitutional Vitals: Abnormal lab results RBC 4.14 M/mcL (4.19-5.50) L 04/24/18 03:00 Hgb 12.4 g/dL (12.9-16.9) L 04/24/18 03:00 MCHC 31.3 g/dL (31.6-35.5) L 04/24/18 03:00 RDW 14.8 % (11.5-14.5) H 04/24/18 03:00 Band Neutrophils % 16.0 % (0-4) H 04/24/18 03:00 Metamyelocytes % 12.0 % (0) H 04/24/18 03:00 Myelocytes % 4.0 % (0) H 04/24/18 03:00 Nucleated RBCs/100 WBC 0.4 /100 WBC (0) H 04/24/18 03:00 Reactive Lymphocytes Present (Not Present) A 04/24/18 03:00 Smudge Cells Present (Not Present) A 04/23/18 03:49 Toxic Granulation Present (Not Present) A 04/24/18 03:00 Polychromasia 1+ (Not Present) A 04/23/18 03:49 Basophilic Stippling 1+ (Not Present) A 04/23/18 03:49 Anisocytosis 1+ (Not Present) A 04/21/18 14:15 PT 14.5 Seconds (9.4-12.1) H 04/22/18 09:30 D-Dimer 5719 ng/mLFEU (0-500) H 04/21/18 19:56 Heparin Anti-Xa, Unfract 0.08 IU/mL (0.30-0.70) L 04/23/18 11:05 ABG pO2 71 mmHg (85-104) L 04/21/18 18:23 ABG O2 Saturation 93 % (95-98) L 04/21/18 18:23 Chloride 109 mEq/L (98-107) H 04/24/18 03:00 BUN 36 mg/dL (8-23) H 04/24/18 03:00 BUN/Creatinine Ratio 35 (6-26) H 04/24/18 03:00 Glucose 148 mg/dL (70-105) H 04/24/18 03:00 POC Glucose 162 mg/dL (70-99) H 04/23/18 13:40 Calculated Osmolality 307 (280-300) H 04/24/18 03:00 Calcium 8.4 mg/dL (8.6-10.3) L 04/24/18 03:00 Phosphorus 4.6 mg/dL (2.7-4.5) H 04/24/18 03:00 AST 12 Units/L (13-39) L 04/22/18 03:57 Troponin I 0.08 ng/mL (< 0.04) H* 04/21/18 19:56 Serum Total Protein 4.7 g/dL (6.4-8.9) L 04/22/18 03:57 Albumin 2.3 g/dL (3.5-5.7) L 04/22/18 03:57 Albumin/Globulin Ratio 1.0 (1.1-2.2) L 04/22/18 03:57 Ur Specific [place] > 1.030 (1.010-1.025) H 04/22/18 02:11 Urine Protein 30 mg/dL (Neg-Trace) H 04/22/18 02:11 General appearance: Present: no acute distress, thin. Absent: mild distress - Head Head exam: Present: atraumatic, normal inspection - Eye Eye exam: Present: conjuntiva pink. Absent: EOMI, periorbital swelling, tiffanie orbital tenderness, PERRL Pupils: Present: fixed. Absent: normal accommodation, PERRL, unequal - ENT ENT exam: Present: mucous membranes dry, normal external ear exam - Neck Neck exam: Present: normal inspection. Absent: tenderness - Respiratory Respiratory exam: Present: accessory muscle use, decreased breath sounds, respiratory distress, wheezes, tachypnea - Cardiovascular Cardiovascular exam: Present: irregular rhythm, tachycardia - GI/Abdominal GI/Abdominal exam: Present: hypoactive bowel sounds, soft. Absent: tenderness - Rectal Rectal exam: Present: deferred - Extremities Exam Extremities exam: Present: pedal edema. Absent: normal inspection, tenderness - Back Exam Back exam: Present: normal inspection - Neurological Exam Neurological exam: Present: altered. Absent: oriented X3 - Psychiatric Psychiatric exam: Present: flat affect - Skin Skin exam: Present: intact, mottled, warm Palliative Quality Palliative Quality: Screen for Code Status: Yes, Screen for Goals of Care: Yes, Screen for Pain: Yes, If Pain Regimen Started, Initiate Bowel Regimen: Yes, Screen for Nausea/Vomitting: Yes Code Status: 04/21/18 16:35 Resuscitation Status: Active [RES] Routine Comment: Resuscitation Status: Full Code 04/23/18 17:22 CODE [Resuscitation Status: Active] [RES] Routine Comment: Resuscitation Status: [id number] - Labs CBC & Chem 7: 04/24/18 03:00 04/24/18 03:00 Labs: Laboratory Results - last 24 hr 04/23/18 04/23/18 04/23/18 11:05 11:05 13:40 WBC RBC Hgb Hct MCV MCH MCHC RDW Plt Count MPV Seg Neutrophils % Band Neutrophils % Lymphocytes % Monocytes % Metamyelocytes % Myelocytes % Neutrophils # Lymphocytes # Monocytes # Nucleated RBCs/100 WBC Reactive Lymphocytes Toxic Granulation Platelet Estimate Heparin Anti-Xa, Unfract 0.08 L Sodium Potassium Chloride Carbon Dioxide BUN Creatinine Est GFR ( Amer) Est GFR (Non-Af Amer) BUN/Creatinine Ratio Glucose POC Glucose 162 H Calculated Osmolality Calcium Phosphorus Magnesium Nasal Screen MRSA (PCR) Negative 04/24/18 04/24/18 03:00 03:00 WBC 9.6 RBC 4.14 L Hgb 12.4 L Hct 39.6 MCV 95.7 MCH 30.0 MCHC 31.3 L RDW 14.8 H Plt Count 167 MPV 10.2 Seg Neutrophils % 58.0 Band Neutrophils % 16.0 H Lymphocytes % 8.0 Monocytes % 2.0 Metamyelocytes % 12.0 H Myelocytes % 4.0 H Neutrophils # 7.1 Lymphocytes # 0.8 Monocytes # 0.2 Nucleated RBCs/100 WBC 0.4 H Reactive Lymphocytes Present A Toxic Granulation Present A Platelet Estimate Normal Heparin Anti-Xa, Unfract Sodium 143 Potassium 4.3 Chloride 109 H Carbon Dioxide 27 BUN 36 H Creatinine 1.02 Est GFR ( Amer) > 60 Est GFR (Non-Af Amer) > 60 BUN/Creatinine Ratio 35 H Glucose 148 H POC Glucose Calculated Osmolality 307 H Calcium 8.4 L Phosphorus 4.6 H Magnesium 1.9 Nasal Screen MRSA (PCR) - ABG Interpretation ABG results: ABG ABG pH 7.36 pH Units (7.32-7.45) 04/21/18 18:23 ABG pCO2 41 mmHg (35-45) 04/21/18 18:23 ABG pO2 71 mmHg (85-104) L 04/21/18 18:23 ABG O2 Saturation 93 % (95-98) L 04/21/18 18:23 PT/INR, D-dimer PT 14.5 Seconds (9.4-12.1) H 04/22/18 09:30 D-Dimer 5719 ng/mLFEU (0-500) H 04/21/18 19:56 Palliative Scale - Palliative Performance Scale How ambulatory is this patient?: Totally bed bound What is patient's level of activity and evidence of disease?: Unable to do any work, Extensive disease How much self-care assistance does patient require?: Total care How much oral intake does the patient have?: Mouth care only What is this patient's level of consciousness?: Drowsy or coma with or without confusion Palliative Performance Score: 10 % Consult Discharge Plan - Plan Referrals: NONE,PCP [Non-Partnered Physician] -
[2018-04-24] MEDS ORDERED: *HR* LORazepam 2 MG/ML VIAL IVP ONE (09:47)
[2018-04-24] MEDS ORDERED: *HR* FentaNYL (PF) 100 MCG/2 ML VIAL IVP ONE (09:47)
[2018-04-24 11:55] VITALS: BP 101/65
--- NOTE | 2018-04-24 11:56 | Infectious Disease Progress No ---
Date of Encounter: 04/24/18 Time of Encounter: 08:30 - Assessment and Plan (1) Severe sepsis Current Visit: Yes Status: Acute The patient had 3 sepsis criteria plus hypotension responsive to IV fluids and lactic acidosis. Likely secondary to pneumonia. White blood cell count has normalized, but he continues to have bandemia. Afebrile overnight. Hypoxic on the BIPAP despite FiO2 100%. Levophed started this morning for hypotension. Cultures drawn 04/21/18 are NGTD 2 sets. Additional blood cultures from 04/22/18 are NGTD2 sets. Recommendations: Continue current plan of care until patient is transitioned to hospice at which time all antibiotics will be discontinued. No further recommendations from the ID team. We will sign off. Please re-consult if needed. (2) Pneumonia Current Visit: Yes Status: Acute Location: Multifocal. Causative organism: Unclear. Chest x-ray 04/21/18 showed air space opacification in the right lung similar to the chest CT 04/18/18. Findings could be related to patient's known malignancy but superimposed pneumonia could not give this appearance. CTA of the chest completed 04/21/18 showed small bilateral lower lobe pulmonary emboli stable to mildly decreased from 04/18/18. There was extensive patchy consolidation in the right lower lobe groundglass opacities in the right lung base new from previous exam likely representing pneumonia or aspiration. There is also grossly unchanged large right upper and middle lobe masslike consolidation abutting the mediastinum and right hilum with associated atelectasis compatible with the patient's history of known lung cancer. Stable nodules in the right middle and lower lobes as well as the lingula were noted as well. Repeat chest x-ray 04/22 showed multifocal airspace disease on the right had progressed from prior exam and findings are concerning for multilobar pneumonia as well as persistent collapse of the right upper lobe and severe background emphysema. Repeat chest x-ray 04/23 showed mildly worsening right airspace disease. The patient has had progressively worsening respiratory symptoms overnight. He is currently unresponsive on the BIPAP. Strep pneumococcal antigen was negative. Legionella UAT negative. MRSA screen negative. Currently on IV Zosyn, Vanc, and Levaquin. Qualifiers: Pneumonia type: due to unspecified organism Laterality: right Lung location: unspecified part of lung Qualified Code(s): J18.9 - Pneumonia, unspecified organism (3) Acute exacerbation of chronic obstructive airways disease Current Visit: Yes Status: Acute Duo nebs, steroids, and O2 support per the primary team. (4) Acute respiratory failure with hypoxia Current Visit: Yes Status: Acute Likely secondary to pneumonia, COPD, and lung cancer. Pulmonology consulted and following. (5) Pulmonary embolism Current Visit: Yes Status: Acute CT of the chest noted bilateral lower lobe pulmonary emboli that had decreased since previous imaging on 04/18/18. Anticoagulation per the primary team. Qualifiers: Pulmonary embolism type: unspecified Chronicity: unspecified Acute cor pulmonale presence: without acute cor pulmonale Qualified Code(s): I26.99 - Other pulmonary embolism without acute cor pulmonale (6) Lactic acidosis Current Visit: Yes Status: Acute Likely secondary to sepsis. Resolved. (7) Lung cancer Current Visit: Yes Status: Chronic Diagnosed in June 2017 Metastatic squamous cell carcinoma of the lung with 2 dominant masses, one involving his right upper lobe and the other involving the left upper lobe with mediastinal invasion. PET/CT 07/03/17 was without visceral metastasis. Status post palliative XRT to the left chest wall completed 07/31/17. Carboplatin with the Abraxane 08/14 through 12/14 discontinued secondary to cytopenias 11/12/17. Right suboccipital craniectomy with cerebellar mastoidectomy 02/26/18. Stereotactic radiotherapy April 04, , and at [place] completed. Her oncology recommendations, the patient was scheduled to start Nivolumab 04/24/18. Qualifiers: Laterality: right Lung location: unspecified part of lung Qualified Code(s): C34.91 - Malignant neoplasm of unspecified part of right bronchus or lung (8) Metastasis to brain Current Visit: Yes Status: Chronic (9) Chronic deep vein thrombosis (DVT) Current Visit: Yes Status: Chronic Venous Doppler study showed chronic DVT in the left common femoral, left superficial femoral, and left popliteal veins. Anticoagulation per the primary team. Qualifiers: DVT location: lower extremity Affected thrombotic vein of extremity: femoral Laterality: left Qualified Code(s): I82.512 - Chronic embolism and thrombosis of left femoral vein - Subjective Interval history: Patient seen and examined. Overnight events noted. Patient has continued to deteriorate clinically. He is now unresponsive on the BiPAP. SPO2 89% despite 100% FiO2 on the BiPAP. Per nursing, the patient's family has opted to pursue palliative care measures and is planning to transition to hospice later today once family arrives. Levophed was started overnight for vasopressor support. Infect Dis PN-Objective Data - Labs CBC & Chem 7: 04/24/18 03:00 04/24/18 03:00 Labs: Laboratory Results - last 24 hr 04/23/18 04/23/18 04/24/18 11:05 13:40 03:00 WBC 9.6 RBC 4.14 L Hgb 12.4 L Hct 39.6 MCV 95.7 MCH 30.0 MCHC 31.3 L RDW 14.8 H Plt Count 167 MPV 10.2 Seg Neutrophils % 58.0 Band Neutrophils % 16.0 H Lymphocytes % 8.0 Monocytes % 2.0 Metamyelocytes % 12.0 H Myelocytes % 4.0 H Neutrophils # 7.1 Lymphocytes # 0.8 Monocytes # 0.2 Nucleated RBCs/100 WBC 0.4 H Reactive Lymphocytes Present A Toxic Granulation Present A Platelet Estimate Normal Sodium Potassium Chloride Carbon Dioxide BUN Creatinine Est GFR ( Amer) Est GFR (Non-Af Amer) BUN/Creatinine Ratio Glucose POC Glucose 162 H Calculated Osmolality Calcium Phosphorus Magnesium Nasal Screen MRSA (PCR) Negative 04/24/18 03:00 WBC RBC Hgb Hct MCV MCH MCHC RDW Plt Count MPV Seg Neutrophils % Band Neutrophils % Lymphocytes % Monocytes % Metamyelocytes % Myelocytes % Neutrophils # Lymphocytes # Monocytes # Nucleated RBCs/100 WBC Reactive Lymphocytes Toxic Granulation Platelet Estimate Sodium 143 Potassium 4.3 Chloride 109 H Carbon Dioxide 27 BUN 36 H Creatinine 1.02 Est GFR ( Amer) > 60 Est GFR (Non-Af Amer) > 60 BUN/Creatinine Ratio 35 H Glucose 148 H POC Glucose Calculated Osmolality 307 H Calcium 8.4 L Phosphorus 4.6 H Magnesium 1.9 Nasal Screen MRSA (PCR) Cultures: Cultures 04/22/18 02:11 Legionella Antigen - Final Urine,Random-Not Preferred 04/22/18 11:53 Blood Culture - Preliminary Peripheral Venipuncture Culture is incubating and being continuously monitored for growth. Final report to follow. 04/22/18 11:56 Blood Culture - Preliminary Peripheral Venipuncture Culture is incubating and being continuously monitored for growth. Final report to follow. 04/21/18 14:15 Blood Culture - Preliminary Peripheral Venipuncture Culture is incubating and being continuously monitored for growth. Final report to follow. 04/21/18 14:15 Blood Culture - Preliminary Peripheral Venipuncture Culture is incubating and being continuously monitored for growth. Final report to follow. 04/22/18 02:11 Streptococcus pneumoniae Antigen (M - Final Urine,Random-Not Preferred Serology 04/23/18 04/22/18 Range/Units 11:05 02:11 Urine Color Yellow (Yellow) Urine Clarity Clear (Clear) Urine pH 6.0 (5.0-8.0) pH Units Ur Specific [place] > 1.030 H (1.010-1.025) Urine Protein 30 H (Neg-Trace) mg/dL Urine Glucose (UA) Normal (Normal) mg/dL Urine Ketones Negative (Negative) mg/dL Urine Blood Negative (Negative) Urine Nitrite Negative (Negative) Urine Bilirubin Negative (Negative) Urine Urobilinogen Normal (Normal) mg/dL Ur Leukocyte Esterase Negative (Negative) Urine Microscopic RBC 0-3 (0-3) per hpf Urine Microscopic WBC 0-3 (0-3) per hpf Ur Squamous Epith Cells Few (None-Few) per lpf Urine Bacteria None Seen (None-Few) per hpf Hyaline Casts None Seen (None-Few) per lpf Nasal Screen MRSA (PCR) Negative (Negative) Exam - Constitutional Vitals: Temp Pulse Resp BP Pulse Ox 98.3 F 102 18 98/57 87 04/24/18 08:00 04/24/18 11:00 04/24/18 11:00 04/24/18 11:00 04/24/18 11:00 General appearance: average body habitus, no acute distress, no cooperative - Head Head exam: Present: atraumatic, normal inspection, normocephalic - Eye Pupils: Present: fixed - ENT ENT exam: Present: mucous membranes dry - Neck Neck exam: Present: normal inspection - Respiratory Respiratory exam: Present: rhonchi (throughout) - Cardiovascular Cardiovascular exam: Present: +S1, +S2, tachycardia. Absent: irregular rhythm - GI/Abdominal GI/Abdominal exam: Present: normal bowel sounds, soft. Absent: distended, tenderness - Extremities Exam Extremities exam: Present: normal inspection. Absent: joint swelling, pedal edema, tenderness - Neurological Exam Neurological exam: Present: altered (Unresponsive to verbal or painful stimuli. Does not follow commands or attempt to communicate.) - Skin Skin exam: Present: dry, intact, pallor, warm Consult Discharge Plan - Plan Referrals: NONE,PCP [Non-Partnered Physician] - - Attending Attestation I examined this patient and my medical decision-making was reviewed with the Resident Physician. I agree with the documented findings, disposition and treatment plan as described except to the extent set forth below.
[2018-04-24] MEDS ORDERED: Atropine Sulfate 1% 40 DROP/2 ML BOTTLE SL PRN (12:45)
[2018-04-24] MEDS ORDERED: Scopolamine Patch 1.5 MG PATCH.TD72 TD ONE (12:46)
[2018-04-24] MEDS ORDERED: *HR* LORazepam 2 MG/ML VIAL IVP PRN (12:46)
[2018-04-24] MEDS ORDERED: Atropine 1% Opth Drops 100 DROP/5 ML BOTTLE SL PRN (13:30)
--- NOTE | 2018-04-24 13:33 | Death Note ---
Pronouncement Note - Date and Time of Date of : 04/24/18 Time of : 13:34 - Additional Data Confirmation of : no pulse, no respirations, no heart sounds, pupils fixed and dilated Family: at bedside Attending/PCP notified?: Yes Attending physician: Aubrey Gabriel MD Was code activated?: No Autopsy requested?: No disability insurance claim examiner notified?: No Organ bank notified?: Yes Advance directives: Yes
--- NOTE | 2018-04-24 14:49 | Death Note ---
Discharge Sum: Summary - Date and Time Date of admission: 04/21/18 16:50 - Additional Data Attending physician: Aubrey Gabriel MD Discharge Sum: Diag - PCOD Probable Cause of : Cardiac arrest Discharge Sum: Prov - Provider Primary care physician: Blanka Lopez Admitting clinician: Venkata Loredo Attending physician on admission: Aubrey Gabriel Consults: 04/21/18 17:29 Consult to Palliative Care [CONS] Routine Comment: Consulting Provider: Palliative Care Marisol Reason for Consult: Lung CA with brain mets Call Completed: No 04/22/18 09:18 Consult to Oncology Hematology [CONS] Routine Consulting Provider: Aubrey Gabriel Reason for Consult: PE see on CTA. Hx of lung CA. consult for [facility] anticoagulation Call Completed: No 04/23/18 07:28 Consult to Critical Care [CONS] Routine Consulting Provider: Pulm Crit Care & Sleep Marisol Reason for Consult: lung CA. Pneumonia. Hypoxemic respiratory failure. Call Completed: No Consult to Infectious Diseases [CONS] Routine Consulting Provider: Infectious Disease Marisol Reason for Consult: pneumonia Call Completed: No Pronouncing clinician: Monisha Pimentel
== END 2018-04-24 13:34 | disposition expired | DRG 871 ==
LOC: EMEROOARM 13:47 → SUATTDRO 16:50 → 2NENU 16:50 → ICNU 04-23 13:43
PROVIDERS: ADMIT Student in an Organized Health Care Education/Training Program; ATTEND Internal Medicine